=== PATIENT | female | born 1980 | race Caucasian/White ===

== ENCOUNTER 2019-10-17 06:22 | Day surgery (SDC) | payer OTHER, SELFPAY ==
[2019-10-16 15:05] VITALS: BMI 30.5
[2019-10-17] VITALS (11 sets, daily range): BP systolic 89–137; BP diastolic 54–68; PULSE 54–75; RESP 14–18; TEMP 36.4–36.8; O2SAT 94–99
--- NOTE | 2019-10-17 | SCC_ITS ---
Procedure Done: Martin bunionectomy with Octavio osteotomy right foot CPT code 60292. Hammertoe repair with proximal interphalangeal joint arthrodesis of second, third, fourth, fifth toes of the right foot CPT code 54832 ?4. 8 seconds of fluoroscopic guidance, for a cumulative dose of 0.14 mGy, was provided to Dr. Sanabria by the radiology department. C-arm images of the RIGHT foot were saved for the patient's permanent record. DONALDOD
--- NOTE | 2019-10-17 | XR_ITS ---
WS: [id number] INTRAOPERATIVE TECHNIQUE: 1 Spot fluoroscopic images for intraoperative purposes. FLUOROSCOPY TIME: 8 seconds CLINICAL INFORMATION: BUNIONECTOMY COMPARISON: None. FINDINGS: Postoperative bunionectomy with screw fixation across the first proximal phalanx partially visualized . Percutaneous Pin fixation involving the second third fourth and fifth digits. XR/XR foot RT 2V [id number] IMPRESSION: Images obtained for intraoperative purposes.
--- NOTE | 2019-10-17 06:51 | P.PN_ITS ---
Pre-Anesthetic Assessment Pre-Anesthetic Assessment: Height/Weight: Height 1.7 m Weight 88.451 kg Temp Pulse Resp BP Pulse Ox 98.3 F 66 18 137/68 98 10/17/19 06:45 10/17/19 06:45 10/17/19 06:45 10/17/19 06:45 10/17/19 06:45 Proposed Procedure: Operation Date: 10/17/19 07:45 Proposed Procedures p Bunionectomy Lapidus(Right) - Gurpreet Sanabria DPM s Hammertoe Correction(Right) - Gurpreet Sanabria DPM Social: Social History: No alcohol and No tobacco Exam: Pre-Anes Outpt Exam: alert, oriented x 3, clear to auscultation bilaterally and regular rate & rhythm Airway: Submandibular: WNL Cervical ROM: WNL MP: 1 Dentition: Full History/ROS: No significant history except as noted and No significant complaints Musc/skel: Musc/skel: RA Anesthetic Plan: ASA status: I Anesthesia: Anesthesia Evaluation and MAC Risk of > 500 ml blood loss (7ml/kg in children): No PFSH Anesthesia PFSH: Family History (Updated 10/16/19 @ 15:01 by [employer]) Father Hyperlipidemia Social History (Updated 10/16/19 @ 15:02 by [employer]) Smoking and tobacco status: never smoked Alcohol intake: current Alcohol intake frequency: holidays/special occasions only Desire information about alcohol rehabilitation?: No Counseling given: No Data Anesthesia Cardiac Studies: No Data to Display
[2019-10-17 06:57] LABS: OR HCG Qualitative Urine Negative (Negative)
[2019-10-17] MEDS: scopolamine 1.5 Patch 1 PATCH TRANSDERMA (07:30)
[2019-10-17] MEDS: sodium chloride 0.9% 1,000 ML 30 ML IV (07:31)
--- NOTE | 2019-10-17 08:01 | P.PN_ITS ---
Subjective Subjective: Interval history: Patient is a pleasant 38-year-old female who has complaints of bilateral hammertoe and bunion pain right is most severe. She has exhausted conservative measures consisting of supportive shoes, padding, activity modifications and vilb-mxa-rkucjpr NSAIDs along with orthotics. She would like to proceed with surgical correction of her right bunion and hammertoes 2, 3, 4 and 5. Patient denies any subjective nausea, vomiting, fever, chills, shortness of breath or chest pain. She is accompanied by her . Vitals/I&O/Wt Last Vital Signs Temp 98.3 F 10/17/19 06:45 Pulse 66 10/17/19 06:45 Resp 18 10/17/19 06:45 BP 137/68 10/17/19 06:45 Pulse Ox 98 10/17/19 06:45 Weight last 48 hrs Weight 195 lb Physical Exam Narrative: EXAM NARRATIVE: GENERAL: Patient is alert and oriented ?3 and in no acute distress. The following is a focused bilateral lower extremity exam. Patient ambulates without assistance. VASCULAR: Dorsalis pedis and posterior tibial arteries +2 bilaterally. Capillary refill time less than 3 seconds to the distal hallux bilaterally. Calf is supple and nontender proximally and distally. Pedal hair growth present. No edema. NEUROLOGICAL: Epicritic and protopathic sensations grossly intact to the lower extremities. +2 Achilles tendon reflex noted bilaterally. Negative Tinel sign up on percussion of lower extremity nerves. DERMATOLOGICAL: Lower extremity skin is well-hydrated, normal texture and turgor. There are no open sores or lesions noted to the lower extremities. No erythema or ecchymosis present to the bilateral legs and feet. Unable to evaluate toenails due to albanian, acrylic nail at great toe. MUSCULOSKELETAL: Bilateral hallux abductovalgus deformity right more severe than left. Right hallux aggressively abuts the second toe however there is no under riding or overriding at this time. Hallux is not track bound. First metatarsal phalangeal joint range of motion 70 degrees of dorsiflexion bilaterally. This is slightly decreased when loading the first ray. Ankle joint dorsiflexion bilaterally 6 degrees beyond neutral. Reducible hammertoe deformities toes 2 through 5 bilaterally right more severe with sagittal plane dominance. Pes planus foot type noted bilaterally. Tenderness to palpation at bunion deformity right greater than left most tender at the dorsal medial aspect of the first metatarsal head. Range of motion at first metatarsophalangeal joint bilaterally is smooth without crepitus. Muscle strength is 5 out of 5 in all 3 cardinal planes to bilateral foot and ankle. A&P Assessment and plan (1) Bunion, right foot: Patient examined and evaluated, findings and treatment options discussed with patient at length. Patient educated on etiology of hammertoe and bunion deformities and conservative treatment measures consisting of wide accommodative shoes, padding/spacers, calf stretches, activity modifications and vhlz-tzk-vhinjjv NSAIDs as needed as well as orthotics. Patient states that she has employed these measures and as the deformities have progressed over time that she is no longer able to get relief and would like to discuss surgical options. Recommended Lapidus bunionectomy with hammertoe repairs 2 through 5 right foot. Discussed recovery consisting of 6 weeks nonweightbearing and risks including pain, bleeding, numbness, infection, overcorrection, under correction, loss of function, malunion, nonunion and recurrence of deformity as well as need for further surgical intervention, risks also DVT, bruising and swelling, risks associated with anesthesia. This can be performed outpatient under MAC anesthesia. She would like to have this scheduled in the near future will contact her clinic when she is ready to move forward, will follow-up with primary care for updated H&P 30 days before surgery. She is in agreement with this plan of care and verbalizes understanding at this time. She will call with any questions or concerns that may arise. Status: Acute Code(s): M21.611 - Bunion of right foot (2) Acquired hammer toe deformity of lesser toe of right foot: Status: Acute Code(s): M20.41 - Other hammer toe(s) (acquired), right foot (3) Right foot pain: Status: Acute Code(s): M79.671 - Pain in right foot Attestations Medical Necessity Statement*: Painful hammertoe Coding Level of Care Code Acute Turbinated Bone Grinder for Martha Nolan Diagnoses Bunion, right foot M21.611 Acquired hammer toe deformity of lesser toe of right foot M20.41 Right foot pain M79.671
[2019-10-17] MEDS: midazolam 1 mg/mL INJ 2 mL 2 MG IVP (08:05)
--- NOTE | 2019-10-17 09:53 | SUR.OPER ---
0834 NOTIFIED OF PT STATUS VIA CELL PHONE 09 NOTIFIED OF PT STATUS VIA CELL PHONE
[2019-10-17] MEDS: ondansetron 2 mg/ML SDV 2 mL 4 MG IVP (10:27)
[2019-10-17] MEDS: metoclopramide 5 mg/mL SDV 2 mL 10 MG IVP (10:32)
[2019-10-17] MEDS: ketorolac 30 mg/mL INJ IVP (10:40)
--- NOTE | 2019-10-17 10:44 | XR_ITS ---
WS: [id number] Right foot, 3 views, 10/17/2019 Clinical Data: post op Comparison: Weightbearing views of both feet, 08/20/2019 Findings: Patient has had an osteotomy of the base of the right first proximal phalanx. A bunionectomy at the head of the right first metatarsal with addition of an oblique orthope dic screw has been performed. There are fusions of the second through fifth toes to correct hammertoe s deformities XR/XR foot RT min 3V* [id number] Impression: Bunionectomy of the head of the right first metatarsal and hammertoe correction s of the second through fifth toes
--- NOTE | 2019-10-17 10:46 | SUR.PHASEI ---
1025- RECEIVED PATIENT IN PACU FROM OR VIA [facility]. RESP ARE EVEN AND NONLABORED. SAT 99% WITH ROOM AIR. RLE IS WARM TO TOUCH WITH CAP REFILL <3 SECONDS. DRESSING DRY AND INTACT. NO S/S PAIN, REPORTS NAUSEA. MEDICATED PER PROTOCOL. WILL CONTINUE TO MONITOR.
--- NOTE | 2019-10-17 11:28 | SUR.PHASEI ---
1101- TRANSFERRED PATIENT FROM PACU TO OPS VIA [facility]. RESP ARE EVEN AND NONLABORED. SAT 98% WITH ROOM AIR. RLE IS WARM TO TOUCH WITH CAP REFILL <3 SECONDS. DRESSING DRY AND INTACT. NAUSEA IMPROVED. REPORTS SOME FOOT PAIN. TRANSITION OF CARE TO [facility]
[2019-10-17] MEDS: oxyCODONE-APAP 10-325 mg Tablet 1 TAB PO (11:41)
--- NOTE | 2019-10-17 15:49 | ANE.PACU ---
 Inpatient post-anesthesia follow up: Airway intact: Yes Vital signs: Temperature 97.8 F Pulse Rate [Left A pical] 61 Respiratory Rate 18 Blood Pressure [Ri ght Arm] 105/66 Pulse Oximetry 97 Oxygen Delivery Me thod Room Air Oxygen Flow Rate Fraction of Inspir ed Oxygen Hydration adequate: Yes Nausea and vomiting: No Mental status: Baseline
--- NOTE | 2019-10-17 20:04 | PM.OP ---
Operative Report Post-Operative Note Date of procedure: 10/18/19 Preop Diagnosis: Bunion of right foot, hammertoe deformity second, third, fourth and fifth toes right foot. Post-op diagnosis: same Post-op Findings: None Procedure Done: Martin bunionectomy with Octavio osteotomy right foot CPT code 36159. Hammertoe repair with proximal interphalangeal joint arthrodesis of second, third, fourth, fifth toes of the right foot CPT code 53160 ?4. Implants: [place] [employer] 3.5 mm x 20 mm headless cannulated screw at Martin bunionectomy right foot [place] [employer] nitinol staple 8 mm x 8 mm x 8 mm angled at Octavio osteotomy right foot [place] 1.25 mm K wires at hammertoe repair second, third and fourth right foot 0.045 K wire at fifth hammertoe repair right foot Specimens removed/disposition: None Pathology: none sent Surgeon: Gurpreet Sanabria Anesthesia: general Estimated blood loss (mL): 5 IV fluids (mL): 0 Urine output (mL): 0 Complications: None Findings: None Condition: stable Disposition: PACU Operative Report Brief History: Patient educated on etiology of hammertoe and bunion deformities and conservative treatment measures consisting of wide accommodative shoes, padding/spacers, calf stretches, activity modifications and fsam-kph-cedzjya NSAIDs as needed as well as orthotics. Patient states that she has employed these measures and as the deformities have progressed over time that she is no longer able to get relief and would like to discuss surgical options. Recommended bunionectomy with hammertoe repairs 2 through 5 right foot. Discussed recovery consisting of 6 weeks nonweightbearing and risks including pain, bleeding, numbness, infection, overcorrection, under correction, loss of function, malunion, nonunion and recurrence of deformity as well as need for further surgical intervention, risks also DVT, bruising and swelling, risks associated with anesthesia. Procedure: Under mild sedation the patient was brought to the operating room and placed on the operating table in supine position. Anesthesia was then administered by the anesthesia service. A timeout was performed. Well-padded pneumatic tourniquet was applied to the right ankle. Right ankle block was performed with 30 cc of 0.5% Marcaine plain. Right lower extremity was then scrubbed, prepped and draped utilizing normal aseptic technique. Right foot was examined a weighted with a Esmarch bandage and tourniquet was inflated to 250 mmHg. Attention was directed to the right foot where a linear longitudinal incision was made 5 cm in length medial and parallel to the extensor hallucis longus tendon. Incision was made with a #15 blade and deepened through subcutaneous tissue utilizing a combination of sharp and blunt technique. Care was taken to retract and preserve neurovascular and tendinous structures. All bleeders were ligated and cauterized as necessary. Linear capsulotomy was performed in the head of the first metatarsal and base of the proximal phalanx were freed from the soft tissue and capsular attachments the eminence of bony hypertrophy was resected at the dorsal medial aspect of the right first metatarsal head and passed from the operative field. A K wire was inserted from medial to lateral to act as an axis guide followed by a chevron type osteotomy with apex pointed distally through and through. The head of the first metatarsal was translocated laterally and impacted back onto the first metatarsal securely with excellent bony apposition and compression noted in an anatomically corrected position this was temporarily fixated followed by fixation utilizing standard AO technique this was a 3.5 mm x 20 mm headless compression screw with excellent bony apposition and compression noted. Temporary fixation was removed and the remaining medial shelf was transected with all rough edges smoothed. Incision site was flushed with saline solution. Attention was then directed to the medial aspect of the right proximal phalanx where dissection was carried distally and the periosteal reflection of the medial and dorsal aspect of the proximal phalanx was performed a K wire was inserted from dorsal to plantar at the lateral cortex near the metaphyseal diaphyseal juncture to act as an axis guide. Followed by an Octavio osteotomy maintaining a lateral cortical hinge. Bony wafer was passed from the operative field. The osteotomy was compressed and fixated utilizing a nitinol staple 8 mm x 8 mm x 8 mm with excellent bony apposition and compression noted. Incision site was flushed with copious amounts of sterile saline solution. Periosteal capsular structures closed with 3-0 Vicryl. Subcutaneous tissue closed with 4-0 Vicryl. Skin was then closed with 5-0 Monocryl in a running intracuticular fashion. Attention was directed to the right second, third, and fourth toes where a linear longitudinal incisions were made with a #15 blade over the dorsal aspect of the proximal interphalangeal joint. Transverse tenotomy's were performed of the extensor tendons at the level of the proximal phalangeal joints which were then reflected proximally and temporarily retracted utilizing mosquito hemostats. The head of the proximal phalanx and base of intermediate phalanx of toes 2, 3, 4 were denuded of articular surface followed by saline flush. Next toes 2, 3 and 4 were fixated utilizing a 1.25 K wire which was initially integrated at the base of the middle phalanx to the distal aspect of the toe exiting out the distal aspect of the distal phalanx and then integrated back into the proximal phalanx and fixated across the metatarsal phalangeal joint and anatomical position for improved stabilization. Excess wire was bent at a 90 degree elbow trimmed and covered with a Gracy ball. The extensor tendons of toes 2, 3, 4 were reapproximated utilizing 4-0 Vicryl and skin was closed with 4-0 nylon. Attention was then directed to the right fifth toe where 2 curvilinear semi-elliptical incisions were performed taking a larger skin wedge medially coursing in a distal medial to proximal lateral orientation. Skin bridge was excised and passed from the operative field. Transverse tenotomy was performed in the head of the proximal phalanx was transected with a sagittal saw and passed from the operative field. Base of the middle phalanx was denuded of its articular surface with a bone rongeur. Incision site was flushed with saline solution followed by fixation of the right fifth toe utilizing 8.045 K wire which was integrated out from the base of the middle phalanx distally and then retrograded into the proximal phalanx not crossing the metatarsal phalangeal joint excess wire was bent at a 90 degrees trimmed and covered with a Gracy ball. Incision site was again flushed with saline extensor tendon was reapproximated utilizing 4-0 Vicryl. Skin closed with 4-0 nylon. Medial incision was dressed with benzoin and Steri-Strips followed by Adaptic being applied to all incision sites followed by sterile 4 x 4's, Kerlix and application of well-padded multilayer compressive posterior splint with ankle joint at neutral position. Tourniquet was deflated and a prompt hyperemic response was noted to all 5 digits of the right foot. Patient tolerated the procedure well and was transferred to the PACU with vital signs stable and vascular status intact. She was provided a prescription for Percocet 7.5/325 mg to be taken as needed ever 4 hours for pain. She was also provided a prescription for Zofran. Patient provided my cell phone number and is to contact me with any postoperative questions or concerns.
== END 2019-10-17 12:00 | disposition home or self-care (01) ==
PROVIDERS: Family Provider Family Medicine; PCP Family Medicine; Visit Provider Podiatrist Foot & Ankle Surgery
PROC: (CPT 28297; principal; 2019-10-17 07:40)
PROC: (CPT 28285; 2019-10-17 07:40)
DX: M21.611 Bunion of right foot (principal); M20.41 Other hammer toe(s) (acquired), right foot; M19.90 Unspecified osteoarthritis, unspecified site
CPT/HCPCS: 28285 ×4; 28299; 73620; 73630; 76000; 84703; 96365; 96374; C1713; J0131; J0690; J1885; J2250; J2405; J2765; J3010; J3490; J7030

== ENCOUNTER → 2019-10-29 14:45 | Outpatient (BNVA) | payer OTHER, SELFPAY | PROVIDERS: Family Provider Family Medicine; PCP Family Medicine; Visit Provider Podiatrist Foot & Ankle Surgery | DX: Z98.890 Other specified postprocedural states (principal) | CPT/HCPCS: 73630 ==

== ENCOUNTER 2019-10-29 16:36 | Outpatient (CLI) | payer OTHER, SELFPAY | END 2019-10-29 16:37 | disposition home or self-care (01) | LOC: SPT 16:37 | PROVIDERS: Family Provider Family Medicine; PCP Family Medicine; Visit Provider Podiatrist Foot & Ankle Surgery | DX: Z46.89 Encounter for fitting and adjustment of other specified devices (principal) | CPT/HCPCS: L4361 ==

== ENCOUNTER → 2019-11-19 12:56 | Outpatient (BNVA) | payer OTHER, SELFPAY | PROVIDERS: Family Provider Family Medicine; PCP Family Medicine; Visit Provider Podiatrist Foot & Ankle Surgery | DX: M79.671 Pain in right foot (principal); M20.41 Other hammer toe(s) (acquired), right foot; M21.611 Bunion of right foot; Z98.890 Other specified postprocedural states | CPT/HCPCS: 73630 ==

== ENCOUNTER 2019-11-19 14:43 | Outpatient (CLI) | payer OTHER, SELFPAY | END 2019-11-19 14:44 | disposition home or self-care (01) | LOC: SPT 14:44 | PROVIDERS: Family Provider Family Medicine; PCP Family Medicine; Visit Provider Podiatrist Foot & Ankle Surgery | DX: M20.41 Other hammer toe(s) (acquired), right foot (principal) | CPT/HCPCS: L3100 ==

== ENCOUNTER → 2019-11-27 15:10 | Outpatient (BNVA) | payer OTHER, SELFPAY | PROVIDERS: Family Provider Family Medicine; PCP Family Medicine; Visit Provider Podiatrist Foot & Ankle Surgery | DX: Z98.890 Other specified postprocedural states (principal); M79.671 Pain in right foot; M20.41 Other hammer toe(s) (acquired), right foot | CPT/HCPCS: 73630 ==

== ENCOUNTER 2020-09-22 15:02 | Outpatient (CLI) | payer OTHER, SELFPAY ==
--- NOTE | 2020-09-22 15:07 | MR_ITS ---
WS: [id number] MRI RIGHT SHOULDER HISTORY: NONTRAUMATIC RIGHT SHOULDER PAIN COMPARISON: None available. TECHNIQUE: Multiplanar sequences of the shoulder joint are submitted. Very minimal arthritis at the AC joint. No encroachment upon the supraspinatus. No os acromion. Bicep s tendon is in normal position. No rotator cuff tears are identified. No muscle atrophy or edema. No joint effusion. No labral tear i s identified. MR/MR shoulder RT wo con* [id number] IMPRESSION: 1. Minimal AC joint arthritis. 2. No rotator cuff tear. 3. No joint effusion.
== END 2020-09-22 15:03 | disposition home or self-care (01) ==
LOC: RADSHAW 15:06
PROVIDERS: Family Provider Family Medicine; PCP Family Medicine; Visit Provider Family Medicine
DX: M13.811 Other specified arthritis, right shoulder (principal)
CPT/HCPCS: 73221

== ENCOUNTER 2020-10-07 08:56 | Outpatient (CLI) | payer OTHER, SELFPAY ==
--- NOTE | 2020-10-07 09:00 | MM_ITS ---
WS: [id number] Exam: [place] [id number] Date/Time of Exam: 10/07/2020 9:02 AM Reason For Exam: SCREENING VIEWS: MLO and CC views both breasts. Comparison made with prior exam of 11/10/2016 and 09/02/2019. Findings: There was no sign of mass, architectural distortion or suspicious calcification in either breast. He terogeneously dense MM/[place] [id number] Impression: BI-RADS: 2-Benign FOLLOW-UP: 1 Year Follow-up This mammogram was also analyzed by the Computer Aided Detection System R2 Imag e Paper Feeder.
== END 2020-10-07 08:57 | disposition home or self-care (01) ==
LOC: RADSHAW 08:58
PROVIDERS: PCP Family Medicine; Visit Provider Family Medicine
DX: Z12.31 Encounter for screening mammogram for malignant neoplasm of breast (principal)
CPT/HCPCS: 77067

== ENCOUNTER → 2021-04-16 14:29 | Outpatient (BNVA) | payer OTHER, SELFPAY | PROVIDERS: PCP Family Medicine; Visit Provider Nurse Practitioner Family | DX: Z20.822 Contact with and (suspected) exposure to COVID-19 (principal) | CPT/HCPCS: 87635 ==

== ENCOUNTER → 2021-08-24 13:49 | Outpatient (BNVA) | payer OTHER, SELFPAY | PROVIDERS: PCP Family Medicine; Visit Provider Nurse Practitioner Family | DX: Z20.822 Contact with and (suspected) exposure to COVID-19 (principal); R68.89 Other general symptoms and signs | CPT/HCPCS: 87400; 87635 ==

== ENCOUNTER → 2021-12-25 15:18 | Outpatient (BNVA) | payer OTHER, SELFPAY | PROVIDERS: PCP Family Medicine; Visit Provider Registered Nurse Neonatal Intensive Care | DX: N12 Tubulo-interstitial nephritis, not specified as acute or chronic (principal) | CPT/HCPCS: 81000 ==

== ENCOUNTER → 2022-01-04 18:24 | Outpatient (BNVA) | payer OTHER, SELFPAY | PROVIDERS: PCP Family Medicine; Visit Provider Nurse Practitioner | DX: N39.0 Urinary tract infection, site not specified (principal) | CPT/HCPCS: 81000 ==

== ENCOUNTER → 2022-01-10 13:32 | Outpatient (BNVA) | payer OTHER, SELFPAY | PROVIDERS: PCP Family Medicine; Visit Provider Registered Nurse Neonatal Intensive Care | DX: N39.0 Urinary tract infection, site not specified (principal); R30.0 Dysuria; R39.9 Unspecified symptoms and signs involving the genitourinary system | CPT/HCPCS: 81000; 87077; 87086; 87184 ==

== ENCOUNTER → 2022-01-26 09:37 | Outpatient (BNVA) | payer OTHER, SELFPAY | PROVIDERS: PCP Family Medicine; Visit Provider Family Medicine | DX: R39.9 Unspecified symptoms and signs involving the genitourinary system (principal); A49.9 Bacterial infection, unspecified; Z16.12 Extended spectrum beta lactamase (ESBL) resistance; N39.0 Urinary tract infection, site not specified | CPT/HCPCS: 81000 ==

== ENCOUNTER 2022-02-23 09:55 | Outpatient (CLI) | payer OTHER, SELFPAY ==
--- NOTE | 2022-02-23 10:13 | MM_ITS ---
WS: [id number] BILATERAL SCREENING DIGITAL BREAST TOMOSYNTHESIS MAMMOGRAM WITH CAD HISTORY: SCREENING COMPARISON: 10/07/2020 and 11/10/2016 Bilateral CC and MLO views with tomosynthesis and synthetic mammography submitted. Computer aided det ection analyzed. Breast composition: The breasts are heterogeneously dense, which may obscure small masses. No suspici ous masses, microcalcifications or architectural distortion. Benign lymph node upper-outer quadrant L EFT breast. MM/[place] [id number] IMPRESSION: BI-RADS: 2-Benign FOLLOW UP: 1 Year Follow-up
== END 2022-02-23 09:56 | disposition home or self-care (01) ==
PROVIDERS: PCP Family Medicine; Visit Provider Family Medicine
DX: Z12.31 Encounter for screening mammogram for malignant neoplasm of breast (principal); N39.0 Urinary tract infection, site not specified
CPT/HCPCS: 77063; 77067; 81003; 87077; 87086; 87186

== ENCOUNTER → 2022-04-07 09:59 | Outpatient (BNVA) | payer OTHER, SELFPAY | PROVIDERS: PCP Family Medicine; Visit Provider Urology | DX: N30.20 Other chronic cystitis without hematuria (principal) | CPT/HCPCS: 81003 ==

== ENCOUNTER → 2022-05-17 08:51 | Outpatient (BNVA) | payer OTHER, SELFPAY | PROVIDERS: PCP Family Medicine; Visit Provider Nurse Practitioner Family | DX: N30.20 Other chronic cystitis without hematuria (principal) | CPT/HCPCS: 74018; 81003; 87086 ==

== ENCOUNTER 2022-05-20 18:21 | Observation (INO) | payer OTHER, SELFPAY ==
--- NOTE | 2022-05-20 18:29 | ECG_ITS ---
[facility] Test Date: 2022-05-20 Pat Name: Karli Juarez Department: Room: Gender: Female Hospice Spiritual Care Coordinator: : 1980 Requested By: Anand Whitaker Order Number: [id number] Andres MD: Dilan Montero M.D. Measurements Intervals [place] Rate: 106 P: 45 OR: 171 QRS: 26 QRSD: 85 T: 26 QT: 309 QTc: 412 Interpretive Statements SINUS TACHYCARDIA No previous ECG available for comparison Electronically Signed On 05-20-2022 20:29:52 CDT by Dilan Montero M.D. [email or web address]
[2022-05-20 18:30] VITALS: BP 122/70; PULSE 105; RESP 16; TEMP 36.4; O2SAT 100
--- NOTE | 2022-05-20 18:31 | W.ED.CHESTPA ---
HPI - Chest Pain General: Chief Complaint: Chest Pain Stated Complaint: Chest Pain Time Seen by Provider: 05/20/22 18:31 History of Present Illness: Ms. Juarez is a 41-year-old lady with history of recurrent urinary tract infection currently on treatment who presents to the emergency department due to chest discomfort. Onset of symptoms was approximately 2 hours ago at rest. She endorses sharp pleuritic right-sided chest pain. Intensity symptoms is moderate to severe and worse with inspiration and movement. Denies similar episodes in the past. No recent surgeries or continuous churn buttermaker immobilization. No other specific changes in health, exacerbating, or alleviating factors identified. Onset (ago): hour(s) Timing of current episode: constant Prior episodes: No Onset: during rest Pain location: right chest Severity: moderate Quality: sharp Relieving factors: nothing Exacerbating factors: inspiration and movement Review of Systems General: Reports: 10 or more systems reviewed and unremarkable except in HPI and below PFSH ED PFSH: Medical History Frequent UTI Surgical History History of bunionectomy of right great toe History of hammertoe correction Family History Father Hyperlipidemia Social History Smoking and tobacco status: never smoked Alcohol intake: current Alcohol intake frequency: holidays/special occasions only Desire information about alcohol rehabilitation?: No Counseling given: No Marital status: service: No Current occupational status: employed History of recent travel: No Physical Exam Const: COMMON NORMALS: alert GENERAL APPEARANCE: cooperative, well developed, in distress (Mild, uncomfortable appearance) and ill appearing (Somewhat) HENMT: COMMON NORMALS: normocephalic and atraumatic HEAD & SCALP: normocephalic and atraumatic Eye: COMMON NORMALS: conjunctivae normal CONJUNCTIVA: Yes conjunctivae normal SCLERA: sclerae normal Neck/C-Spine: COMMON NORMALS: supple GENERAL: Yes trachea midline Resp: COMMON NORMALS: normal respiratory effort EFFORT & INSPECTION: Yes able to speak in complete sentences Cardio: COMMON NORMALS: regular rhythm RATE: tachycardic RHYTHM: regular rhythm GI: COMMON NORMALS: Soft to palpation PALPATION: Yes Soft to palpation and No Tenderness to palpation present (GI) Extremity: GENERAL: Yes normal exam except as noted and No edema Neuro: COMMON NORMALS: moves all extremities SENSORIUM/ORIENTATION: Yes alert and No Orientation impaired Psych: COMMON NORMALS: mental status grossly normal and Normal thought process present THOUGHT PROCESS: Normal thought process present Course ED course: - Patient was seen and evaluated by me at bedside - Patient placed on cardiac monitors, IV access obtained - Initial evaluation notable for exam as above. Uncomfortable and somewhat ill-appearing - Labs and xrays personally interpreted by me. EKG showing sinus tachycardia with nonspecific ST segment abnormalities. No STEMI. - Fluids, analgesia, and antiemetic given - Labs notable for no leukocytosis, normal hemoglobin. D-dimer elevated. Metabolic panel with mild evidence of dehydration. Transaminitis of uncertain etiology. Delta troponin negative. No evidence of UTI. Negative viral studies. - Imaging notable for no lobar consolidation or pneumothorax. Given persistent tachycardia without clear explanation patient cannot be ruled out by PERC criteria therefore D-dimer obtained as noted above end was elevated. CTA without a pulmonary embolism though does show evidence of pneumonia. Somewhat odd given patient's clinical picture as she has not had cough associated with symptoms. -Antibiotic for community-acquired pneumonia ordered - Upon serial reexamination after treatment the patient was significantly improved despite multiple doses of analgesia - Based on patient history, evaluation, and testing as interpreted the most likely cause of the patient's condition is pneumonia with persistent tachycardia and intractable chest discomfort. Additional consideration is pericarditis though EKG does not show significant ST elevation. - The results of ED evaluation were discussed with the patient including plan for admission due to requirement for level of care not available if discharged to prevent significant worsening/deterioration. - Admitting service was contacted and Dr Geller with the hospitalist service agreed to admit the patient - Patient was admitted without further deterioration or significant events. Note: Click bubbles or prepopulated barillas in note writing are used for assistance with data collection and billing and are inherently more limited than narrative and other text portions of this note. Please use narrative for additional clinical history and defer to narrative/free test for any case of contradictory information. If information appears in only free text or click bubble it should be considered present or absent as reported. Please contact note promotion writer for clarifications of clinical information or contradictory information. MDM is a brief summary, contradictory or erroneous seeming information should be clarified and full note should be reviewed. Vital Signs: Vital signs: Vital Signs Temperature 98.2 F 05/22/22 13:28 Pulse Rate 74 05/22/22 13:28 Respiratory Rate 16 05/22/22 13:28 Blood Pressure 121/83 05/22/22 13:28 Pulse Oximetry 98 05/22/22 13:28 Oxygen Delivery Me thod 05/22/22 12:00 MDM - Chest Pain Medical Decision Making 41-year-old lady presenting with tachycardia and chest pain. Possible pneumonia identified on CT scan. Patient did not have significant improvement despite multiple rounds of ED treatment. Admitted for further management. Medical Records I reviewed the patient's medical records. Lab Data I reviewed the patient's lab results. : 05/22/22 04:42 05/22/22 04:42 Radiology Impressions Chest X-Ray 05/20/22 18:49 IMPRESSION: No acute findings. Chest CTA 05/20/22 19:22 IMPRESSION: 1. There is no pulmonary embolus. 2. Mild bibasilar ground-glass/airspace opacity is present, consistent with atelectasis, edema, or pneumonia. 3. There is mild dependent atelectasis in the upper lobes and mild tree-in-bud appearance compatible with mild pneumonitis or trace edema. 4. Heterogeneous enlarged thyroid gland without discrete nodule. No follow-up is necessary. Gallbladder Ultrasound 05/21/22 23:05 IMPRESSION: Unremarkable gallbladder ultrasound. Laboratory Results WBC 9.4 10^3/uL (4.0-10.0) 05/20/22 18:55 RBC 4.58 10^6/uL (4.1-5.3) 05/20/22 18:55 Hgb 12.2 g/dL (11.5-15.3) 05/20/22 18:55 Hct 38.2 % (37.0-47.0) 05/20/22 18:55 MCV 83.4 fl (81-99) 05/20/22 18:55 MCH 26.6 pg (28.0-34.0) L 05/20/22 18:55 MCHC 31.9 g/dL (30.0-36.0) 05/20/22 18:55 RDW 12.6 % (12.1-15.1) 05/20/22 18:55 Plt Count 288 10^3/cmm (130-400) 05/20/22 18:55 MPV 11.2 fL (7.4-10.4) H 05/20/22 18:55 Neut % (Auto) 71.1 % 05/20/22 18:55 Lymph % (Auto) 19.1 % 05/20/22 18:55 Wise % (Auto) 8.1 % 05/20/22 18:55 Eos % (Auto) 1.2 % 05/20/22 18:55 Baso % (Auto) 0.3 % 05/20/22 18:55 Neut # (Auto) 6.68 10^3/uL (1.8-7.7) 05/20/22 18: Lymph # (Auto) 1.8 10^3/uL (0.8-4.8) 05/20/22 18:55 Wise # (Auto) 0.8 10^3/uL (0.2-0.9) 05/20/22 18:55 Eos # (Auto) 0.1 10^3/uL (0.0-0.8) 05/20/22 18:55 Baso # (Auto) 0.0 10^3/uL (0.0-0.1) 05/20/22 18: Nucleated RBC % (auto) 0 % 05/20/22 18: Nucleated RBCs # 0.0 /100WBC 05/20/22 18:55 ESR 17 mm/hr (0-15) H 05/20/22 18:55 D-Dimer 0.75 ug/mIFEU (0-0.59) H 05/20/22 18:55 Sodium 137 mmol/L (136-145) 05/20/22 18:55 Potassium 3.7 mmol/L (3.5-5.1) 05/20/22 18:55 Chloride 105 mmol/L (98-107) 05/20/22 18:55 Carbon Dioxide 20 mmol/L (22-29) L 05/20/22 18:55 Anion Gap 15.7 (5-19) 05/20/22 18:55 BUN 17 mg/dL (6-20) 05/20/22 18:55 Creatinine 0.4 mg/dL (0.5-0.9) L 05/20/22 18:55 GFR Calculation 174.2 mL/min (90-130) H 05/20/22 18:55 Glucose 83 mg/dL (65-115) 05/20/22 18:55 Calculated Osmolality 285 mOsm/kg (285-295) 05/20/22 18:55 Calcium 10.1 mg/dL (8.5-10.5) 05/20/22 18:55 Total Bilirubin 0.3 mg/dL (0.15-1.2) 05/20/22 18:55 AST 43 U/L (0-32) H 05/20/22 18:55 ALT 44 U/L (0-33) H 05/20/22 18:55 Alkaline Phosphatase 151 IU/L (35-105) H 05/20/22 18:55 Troponin T Baseline 6 ng/L (0-10) 05/20/22 18:55 Troponin T 120 Minute 6.00 ng/L (0-10) 05/20/22 21:15 Delta Troponin T 0 ABS# (0-10) 05/20/22 21:15 C-Reactive Protein 13.0 mg/L (0.0-4.9) H 05/20/22 21:15 NT-Pro-B Natriuret Pep 80 pg/mL (0-125) 05/20/22 18:55 Total Protein 7.0 g/dL (6.6-8.7) 05/20/22 18:55 Albumin 4.1 g/dL (3.5-5.2) 05/20/22 18:55 Globulin 2.9 g/dL (1.3-4.6) 05/20/22 18:55 Lipase 26 U/L (13-60) 05/20/22 18:55 TSH 0.01 uIU/mL (0.27-4.20) L 05/20/22 21:15 Free T4 2.19 ng/dL (0.82-1.77) H 05/20/22 21:15 Free T3 6.6 PG/ML (2.0-4.4) H 05/20/22 21:15 HCG, Qual Negative (Negative) 05/20/22 20:08 Urine Color Yellow (Yellow) 05/20/22 20:08 Urine Appearance Clear (CLEAR) 05/20/22 20:08 Urine pH 5 (5-7) 05/20/22 20:08 Ur Specific [place] 1.025 (1.005-1.030) 05/20/22 20:08 Urine Protein Neg (Negative) 05/20/22 20:08 Urine Glucose (UA) Norm (Normal) 05/20/22 20:08 Urine Ketones 1+ (Negative) H 05/20/22 20:08 Urine Blood Neg (Negative) 05/20/22 20:08 Urine Nitrate Negative (Negative) 05/20/22 20:08 Urine Bilirubin Neg (Negative) 05/20/22 20:08 Urine Urobilinogen Neg mg/dL (Negative) 05/20/22 20:08 Ur Leukocyte Esterase Negative (Negative) 05/20/22 20:08 Ethyl Alcohol < 10 mg/dL (0-10) 05/20/22 21:15 Rheumatoid Factor 11.0 IU/mL (0-14) 05/20/22 18:55 Hepatitis A IgM Ab Non-reactive (Nonreactive) 05/20/22 18:55 Hep Bs Antigen Non-reactive (Nonreactive) 05/20/22 18:55 Hep B Core IgM Ab Non-reactive (Nonreactive) 05/20/22 18:55 Hepatitis C Antibody Non-reactive (Nonreactive) 05/20/22 18:55 HIV 1&2 Ab & HIV 1 Ag Non-reactive (Non-Reactiv) 05/20/22 18:55 HIV 1&2 Antibody Non-reactive (Non-Reactiv) 05/20/22 18:55 SARS-CoV-2 Ag (Rapid) Negative (Negative) 05/20/22 20:08 Discharge Plan Discharge Patient Disposition: Placed in Observation Admit Provider: Sebastian Geller Clinical Impression: Chest pain, Pneumonia Discharge Diet: Cardiac Discharge Activity: Increase activity as tolerated Coding Level of Care Code ED Contracts Analyst for Chg Fwd Exam Comprehensive
--- NOTE | 2022-05-20 18:44 | PC.NURSE ---
PT PLACED ON CONTINUOUS SPO2, NIBP, AND CM.
--- NOTE | 2022-05-20 18:49 | XRR_ITS ---
PROCEDURE INFORMATION: Exam: XR Chest Exam date and time: 05/20/2022 6:58 PM Age: 41 years old Clinical indication: On breathing; Patient HX: Chest pain, upper new onset, no known trauma TECHNIQUE: Imaging protocol: Radiologic exam of the chest. Views: 1 view. COMPARISON: CR XR KUB [id number] 05/17/2022 10:15 AM FINDINGS: Lungs: Unremarkable. No consolidation. Pleural spaces: Unremarkable. No pleural effusion. No pneumothorax. Heart/Mediastinum: Unremarkable. No cardiomegaly. Bones/joints: No acute abnormality. XR/XR chest 1V portable [id number] IMPRESSION: No acute findings.
[2022-05-20 18:58] VITALS: RESP 16
[2022-05-20] MEDS: ondansetron 2 mg/ML SDV 2 mL 4 MG IVP ×2 (18:58→23:43)
[2022-05-20] MEDS: morphine 4 mg/mL SDV 1 mL IVP (18:58)
[2022-05-20 19:03] LABS: Basophils % 0.3 %; Eosinophils # 0.1 10^3/uL (0.0-0.8); Eosinophils % 1.2 %; Hematocrit 38.2 % (37.0-47.0); Hemoglobin 12.2 g/dL (11.5-15.3); Lymphocytes # 1.8 10^3/uL (0.8-4.8); Lymphocytes % 19.1 %; Mean Corpuscular HGB Conc 31.9 g/dL (30.0-36.0); Mean Corpuscular Hemoglobin 26.6 pg (28.0-34.0); Mean Corpuscular Volume 83.4 fl (81-99); Mean Platelet Volume 11.2 fL (7.4-10.4); Monocytes # 0.8 10^3/uL (0.2-0.9); Monocytes % 8.1 %; Neutrophils # 6.68 10^3/uL (1.8-7.7); Neutrophils % 71.1 %; Nucleated Red Blood Cells % 0 %; Platelet Count 288 10^3/cmm (130-400); Red Blood Count 4.58 10^6/uL (4.1-5.3); Red Cell Distribution Width 12.6 % (12.1-15.1); White Blood Count 9.4 10^3/uL (4.0-10.0)
--- NOTE | 2022-05-20 19:05 | PC.NURSE ---
REPORT GIVEN TO [facility].
[2022-05-20 19:21] LABS: D Dimer 0.75 ug/mIFEU (0-0.59)
--- NOTE | 2022-05-20 19:22 | CTR_ITS ---
PROCEDURE INFORMATION: Exam: CTA Chest With Contrast Exam date and time: 05/20/2022 7:34 PM Age: 41 years old Clinical indication: Chest wall pain; Patient HX: New onset upper chest pain wo trauma; Pain when breathing in; Additional info: Elevated ddimer, tachycardia, pleuritic chest pain TECHNIQUE: Imaging protocol: Computed tomographic angiography of the chest with contrast. 3D rendering (Not supervised by radiologist): MIP and/or 3D reconstructed images were created by the technologist. Radiation optimization: All CT scans at this facility use at least one of these dose optimization techniques: automated exposure control; mA and/or kV adjustment per patient size (includes targeted exams where dose is matched to clinical indication); or iterative reconstruction. Contrast material: OMNIPAQUE 350; Contrast volume: 85 ml; Contrast route: INTRAVENOUS (IV); COMPARISON: CR XR chest 1V portable [id number] 05/20/2022 6:58 PM RADIATION DOSE METRICS: Total DLP (mGy-cm): 363.34 FINDINGS: Pulmonary arteries: There is no pulmonary embolus. Aorta: Unremarkable. No aortic aneurysm. No aortic dissection. Thyroid: The thyroid gland is enlarged and in particular the left thyroid lobe is enlarged and very heterogeneous measuring at least 4.5 x 3.4 x 4.9 cm. No discrete thyroid nodule is identified. Lungs: Mild bibasilar ground-glass/airspace opacity is present, consistent with atelectasis, edema, or pneumonia. There is mild dependent atelectasis in the upper lobes and mild tree-in-bud appearance compatible with mild pneumonitis or trace edema. No dense lobar consolidation. Pleural spaces: Unremarkable. No pneumothorax. No pleural effusion. Heart: The heart is enlarged. Lymph nodes: Unremarkable. No enlarged lymph nodes. Diaphragm: A small hiatal hernia is present. Liver: There is a diffuse decrease in hepatic parenchymal density, consistent with fatty infiltration. Gallbladder and bile ducts: Multiple calcified gallstones are present. There is no wall thickening or pericholecystic fluid to suggest cholecystitis. Bones/joints: Unremarkable. No acute fracture. Soft tissues: Unremarkable. CT/CT angio chest PE protcl [id number] IMPRESSION: 1. There is no pulmonary embolus. 2. Mild bibasilar ground-glass/airspace opacity is present, consistent with atelectasis, edema, or pneumonia. 3. There is mild dependent atelectasis in the upper lobes and mild tree-in-bud appearance compatible with mild pneumonitis or trace edema. 4. Heterogeneous enlarged thyroid gland without discrete nodule. No follow-up is necessary.
[2022-05-20 19:30] LABS: Troponin(5th) Baseline 6 ng/L (0-10)
[2022-05-20 19:36] LABS: Alanine Aminotransferase 44 U/L (0-33); Albumin Level 4.1 g/dL (3.5-5.2); Alkaline Phosphatase 151 IU/L (35-105); Anion Gap 15.7 (5-19); Aspartate Amino Transferase 43 U/L (0-32); Blood Urea Nitrogen 17 mg/dL (6-20); Calcium 10.1 mg/dL (8.5-10.5); Carbon Dioxide 20 mmol/L (22-29); Chloride 105 mmol/L (98-107); Globulin 2.9 g/dL (1.3-4.6); Glomerular Filtration Rate 174.2 mL/min (90-130); Glucose 83 mg/dL (65-115); Lipase 26 U/L (13-60); NT Pro B Type Natriuretic Pept 80 pg/mL (0-125); Osmolality Calculated 285 mOsm/kg (285-295); Potassium 3.7 mmol/L (3.5-5.1); Sodium 137 mmol/L (136-145); Total Bilirubin 0.3 mg/dL (0.15-1.2)
[2022-05-20] MEDS: iohexol 350 mg/mL 100 mL Btl IV (19:36)
[2022-05-20] MEDS: aspirin 81 mg Chew Tablet 324 MG PO (20:01)
[2022-05-20] MEDS: lactated ringers 1,000 ML 999 ML IV (20:01)
[2022-05-20 20:11] LABS: Add Urine Microscopic? NO; Charge for UA Resulting for Rev
[2022-05-20 20:16] LABS: Bilirubin Urine Neg (Negative); Blood Urine Neg (Negative); Glucose Urine UA Norm (Normal); HCG Qualitative Urine. Negative (Negative); Ketones Urine 1+ (Negative); Leukocyte Esterase Urine Negative (Negative); Nitrate Urine Negative (Negative); Protein Urine Neg (Negative); Specific Gravity, Urine 1.025 (1.005-1.030); Urine Appearance Clear (CLEAR); Urine Color Yellow (Yellow); Urobilinogen Urine Neg (Negative); pH Urine 5 (5-7)
[2022-05-20 20:37] LABS: SARS Covid-2 Antigen Negative (Negative)
--- NOTE | 2022-05-20 20:50 | ECG_ITS ---
[facility] Test Date: 2022-05-20 Pat Name: Karli Juarez Department: Room: 267 Gender: Female Anchorman: : 1980 Requested By: Anand Whitaker Order Number: [id number] Andres MD: Dilan Montero M.D. Measurements Intervals [place] Rate: 119 P: 51 AL: 206 QRS: 48 QRSD: 83 T: 46 QT: 306 QTc: 431 Interpretive Statements SINUS TACHYCARDIA POSSIBLE LEFT ATRIAL ENLARGEMENT [-0.1mV P-WAVE IN V1/V2] Compared to ECG 05/20/2022 18:29:29 No significant changes Electronically Signed On 05-22-2022 17:50:02 CDT by Dilan Montero M.D. [id number]
[2022-05-20] MEDS: fentaNYL 50 mcg/mL INJ 2mL IVP (21:07)
[2022-05-20] MEDS: lidocaine 2% viscous 15 ML, aluminum-mag hydrox-simethicon 30 ML, sucralfate oral liq 1 GM PO (21:07)
[2022-05-20] MEDS: ketorolac 30 mg/mL INJ 15 MG IVP (21:07)
[2022-05-20 21:17] VITALS: BP 124/74; PULSE 115; RESP 24; O2SAT 98
--- NOTE | 2022-05-20 21:18 | PC.NURSE ---
Pt. states that she was in a great amount of pain before I gave pain medication . Pt. is relaxed and says thank you for pain medication.
[2022-05-20 22:22] LABS: Erythrocyte Sedimentation Rate 17 mm/hr (0-15)
[2022-05-20] MEDS: cefTRIAXone 1,000 MG in sodium chloride 0.9% (plus) 50 ML 100 MG IV (22:26)
[2022-05-20 22:31] VITALS: BP 124/74; PULSE 120; RESP 28; O2SAT 98
[2022-05-20 22:45] LABS: Troponin 5 2HR Delta 0 ABS# (0-10)
[2022-05-20 22:56] VITALS: BMI 31.3
[2022-05-20 22:57] VITALS: BP 133/83; PULSE 122; RESP 20; TEMP 36.8; O2SAT 96
--- NOTE | 2022-05-20 23:19 | PM.HP ---
Providers/Chief Complaint Admitting Physician: Sebastian Geller MD Primary Care Provider: Kevin Rapp DO Chief Complaint: Chest Pain History of Present Illness Karli Juarez is a 41 year old female with a past medical history of vitiligo, frequent UTIs, currently on Augmentin, who presents to [facility] due to severe chest pain. Patient tells me that she has had recurrent UTIs, she has been on multiple rounds of antibiotics, she was on Macrobid however had recurrent UTIs and now is on Augmentin. Overall she has been doing well, no fevers, chills, no recent sickness, recent travel, no known exposure to COVID-19. She does have vitiligo, no other immunologic disease. No recent travel, no calf pain, no calf swelling, no hematemesis no hemoptysis. He tells me that today she was returning from [place] with her , when she started to develop severe substernal chest pain, that improved with sitting up and lying forward, it is almost a pressure-like pain, persisting for hours, so she presented here to the emergency room, here in the emergency room, her EKG is within normal limits, troponin within normal limits, she had received Toradol, morphine without any significant provement, fentanyl significantly reduce the pain, now with minimal 4 out of 10. She sitting up leaning forward, tells me that this position typically helps her pain, she also describes acid reflux that has been an issue recently. No abdominal pain, no nausea, vomiting. Review of Systems Const: Denies: fever(s), chills, fatigue or malaise Eyes: Denies: change in vision or blurry vision ENMT: Denies: nasal congestion Resp: Denies: dyspnea, productive cough, non-productive cough or wheezing GI: Denies: abdominal pain, nausea, vomiting, hematemesis, diarrhea, constipation, hematochezia or melena Musc: Denies: neck pain or back pain Neuro: Denies: headache(s), dizziness or vertigo Endo: Denies: polyuria or polydipsia Medications/Allergies Home Medications Medication Instructions Recorded Confirmed Last Taken Type biotin 5 mg tablet 5 mg PO DAILY 01/17/22 05/17/22 Unknown History cetirizine 10 mg tablet (Zyrtec) 10 mg PO DAILY PRN 01/17/22 05/17/22 Unknown History cholecalciferol (vitamin D3) 25 25 mcg PO DAILY 01/17/22 05/17/22 Unknown History mcg (1,000 unit) capsule clobetasol 0.05 % topical spray 1 applic topical BID #125 mL 01/17/22 05/17/22 Unknown Rx fluconazole 150 mg tablet 150 mg PO Q3D 3 days #3 tabs 01/17/22 05/17/22 Unknown Rx (Diflucan) magnesium 200 mg tablet 200 mg PO DAILY 01/17/22 05/17/22 Unknown History multivitamin (One-A-Day Essential) 1 tab PO DAILY 01/17/22 05/17/22 Unknown History phentermine 30 mg capsule 30 mg PO DAILY 01/17/22 05/17/22 Unknown History vitamin B complex (B 1 tab PO DAILY 01/17/22 05/17/22 Unknown History Complex-Vitamin B12) zinc 50 mg tablet 50 mg PO DAILY 01/17/22 05/17/22 Unknown History amoxicillin 875 mg-potassium 1 tab PO BID #60 tabs 05/17/22 05/17/22 Unknown Rx clavulanate 125 mg tablet Allergies Allergy/AdvReac Type Severity Reaction Status Date / Time No Known Allergies Allergy Verified 05/17/22 09:02 PFSH Acute PFSH: Medical History Frequent UTI Surgical History History of bunionectomy of right great toe History of hammertoe correction Family History Father Hyperlipidemia Social History Smoking and tobacco status: never smoked Alcohol intake: current Alcohol intake frequency: holidays/special occasions only Desire information about alcohol rehabilitation?: No Counseling given: No Marital status: service: No Current occupational status: employed History of recent travel: No Vitals/I&O/Wt Last Vital Signs Temp 98.2 F 05/20/22 22:57 Pulse 122 H 05/20/22 22:57 Resp 20 H 05/20/22 22:57 BP 133/83 05/20/22 22:57 Pulse Ox 96 05/20/22 22:57 O2 Del Method 05/20/22 22:57 05/20/22 05/20/22 05/21/22 14:59 22:59 06:59 Intake Total 1050 / 1050 Balance 1050 / 1050 Weight last 48 hrs Weight 90.718 kg Physical Exam Const: COMMON NORMALS: no acute distress and patient oriented x3 HENMT: COMMON NORMALS: normocephalic HEAD & SCALP: normocephalic Eye: COMMON NORMALS: Equal, round and reactive pupils present and EOMs intact bilaterally Neck/C-Spine: COMMON NORMALS: no JVD Resp: COMMON NORMALS: normal respiratory effort, No retractions, No use of accessory muscles and clear to auscultation bilaterally AUSCULTATION: clear to auscultation bilaterally Cardio: COMMON NORMALS: no JVD, regular rate, regular rhythm, S1 normal heart sound present and S2 normal heart sound present RATE: tachycardic RHYTHM: regular rhythm HEART SOUNDS: S1 normal heart sound present and S2 normal heart sound present GI: COMMON NORMALS: Normal to inspection, nondistended, normoactive bowel sounds present, Soft to palpation, non-tender, No hepatosplenomegaly present, no masses and no bruits PALPATION: Yes Soft to palpation and Yes No hepatosplenomegaly present Extremity: COMMON NORMALS: capillary refill normal, no clubbing, cyanosis or edema, no calf tenderness and no pedal edema Neuro: COMMON NORMALS: patient oriented x3, CN's II-XII intact bilaterally, moves all extremities and no focal motor deficits Psych: COMMON NORMALS: mental status grossly normal Data : 05/20/22 18:55 05/20/22 18:55 Micro: Microbiology 05/20/22 21:15 Blood Culture - Preliminary Blood SPECIMEN COLLECTED 05/20/22 21:10 Blood Culture - Preliminary Blood SPECIMEN COLLECTED A&P Assessment and plan (1) Chest pain: Chest pain -Clinically sounds a lot like pericarditis -CT of the chest does show groundglass opacities, could be a viral pneumonitis, social pericarditis -However no significant ST changes on EKG, CRP within normal limits, sed rate within normal limits -Toradol did not seem to help complaint, nonetheless we will do ibuprofen 600 3 times daily, GI protection as below, will do a cardiac echocardiogram -Certainly acid reflux could be another etiology, but received a GI cocktail, will place on Protonix, Carafate -Certainly costochondritis could be an etiology, ibuprofen as above, Dilaudid for severe pain -Does have transaminitis, elevated alk phos, right upper quadrant ultrasound -Other thoughts could be atypical pneumonia with pleurisy given CT scan findings of bibasilar groundglass airspace, continue Rocephin, continue azithromycin opacities, mild tree-in-bud appearance compatible with mild pneumonitis -Does have vitiligo, will do RACHEL, rheumatoid factor, tick panel On examination and on CT scan does have a heterogeneous enlarged thyroid gland, measuring 4.5 x 3.4 x 4.9 cm no discrete nodule -We will do TSH, free T3, free T4 -Needs to follow-up with ENT Status: Acute Attestations Medical Necessity Statement*: Patient requires hospitalization, outpatient with observation, for chest pain Coding Level of Care Code Acute Elastic Attacher Zigzag for [facility] F[facility] Diagnoses Chest pain R07.9
[2022-05-20 23:26] VITALS: RESP 18
[2022-05-20] MEDS: HYDROmorphone 1 mg/mL INJ 1 mL 0.5 MG IVP (23:26)
[2022-05-20] MEDS: CLONazepam 0.5 mg Tablet PO (23:29)
[2022-05-20] MEDS: pantoprazole DR 40 mg Tablet PO (23:29)
[2022-05-20] MEDS: sucralfate 1 gm Tablet PO (23:29)
[2022-05-20] MEDS: doxycycline 100 MG in sodium chloride 0.9% (plus) 100 ML IV (23:30)
[2022-05-20] MEDS: enoxaparin 40 mg/0.4 mL Syringe SUBCUT (23:43)
[2022-05-20 23:56] LABS: Alcohol Level < 10 mg/dL (0-10); Free T4 Free Thyroxine 2.19 ng/dL (0.82-1.77); T3 Free 6.6 PG/ML (2.0-4.4); Thyroid Stimulating Hormone 0.01 uIU/mL (0.27-4.20)
[2022-05-21] VITALS (8 sets, daily range): BP systolic 110–118; BP diastolic 73–79; PULSE 73–113; RESP 16–18; TEMP 36.2–37.1; O2SAT 94–99
[2022-05-21] LABS: HIV 1 & 2 Antibody Non-Reactive (Non-Reactiv); HIV 1 & 2 Antigen Non-Reactive (Non-Reactiv); Hepatitis A Antibody IgM Non-Reactive (Nonreactive); Hepatitis B Core IgM Non-Reactive (Nonreactive); Hepatitis B Surface Antigen Non-Reactive (Nonreactive); Hepatitis C Virus Antibody Non-Reactive (Nonreactive)
--- NOTE | 2022-05-21 01:18 | ECG_ITS ---
[facility] Test Date: 2022-05-21 Pat Name: Karli Juarez Department: Room: 267 Gender: Female Oxidation Engineer: : 1980 Requested By: Anand Whitaker Order Number: [id number] Andres MD: Dilan Montero M.D. Measurements Intervals [place] Rate: 113 P: 39 UT: 222 QRS: 14 QRSD: 85 T: 24 QT: 305 QTc: 420 Interpretive Statements SINUS TACHYCARDIA WITH FIRST DEGREE AV BLOCK POSSIBLE LEFT ATRIAL ENLARGEMENT [-0.1mV P-WAVE IN V1/V2] NONSPECIFIC ST ELEVATION [0.05+ mV ST ELEVATION] Compared to ECG 05/20/2022 22:20:47 First degree AV block now present ST (T wave) deviation now present Electronically Signed On 05-22-2022 17:49:13 CDT by Dilan Montero M.D. [id number]
[2022-05-21 01:33] LABS: Amphetamines Screen Urine Negative (Negative); Barbiturates Screen Urine Negative (Negative); Benzodiazepines Screen Urine Negative (Negative); Cocaine Screen Urine Negative (Negative); Opiate Screen Urine Positive (Negative); PCP Screen Urine Negative (Negative); THC Screen Urine Negative (Negative)
[2022-05-21 01:44] LABS: Basophils % 0.3 %; Eosinophils % 0.2 %; Hematocrit 37.9 % (37.0-47.0); Hemoglobin 11.4 g/dL (11.5-15.3); Lymphocytes # 1.3 10^3/uL (0.8-4.8); Mean Corpuscular HGB Conc 30.1 g/dL (30.0-36.0); Mean Corpuscular Hemoglobin 26.9 pg (28.0-34.0); Mean Corpuscular Volume 89.4 fl (81-99); Mean Platelet Volume 11.3 fL (7.4-10.4); Monocytes # 0.9 10^3/uL (0.2-0.9); Monocytes % 8.6 %; Neutrophils # 7.67 10^3/uL (1.8-7.7); Neutrophils % 77.6 %; Nucleated Red Blood Cells % 0 %; Platelet Count 239 10^3/cmm (130-400); Red Blood Count 4.24 10^6/uL (4.1-5.3); Red Cell Distribution Width 12.7 % (12.1-15.1); White Blood Count 9.9 10^3/uL (4.0-10.0)
[2022-05-21 02:11] LABS: Lactate (Lactic Acid level) 1.3 mmol/L (0.5-2.2)
[2022-05-21] MEDS: ibuprofen 600 mg Tablet PO ×2 (02:13→22:16)
[2022-05-21 02:14] LABS: Alanine Aminotransferase 44 U/L (0-33); Albumin Level 3.6 g/dL (3.5-5.2); Alkaline Phosphatase 140 IU/L (35-105); Aspartate Amino Transferase 44 U/L (0-32); Blood Urea Nitrogen 12 mg/dL (6-20); C Reactive Protein 25.1 mg/L (0.0-4.9); Calcium 9.6 mg/dL (8.5-10.5); Carbon Dioxide 18 mmol/L (22-29); Chloride 105 mmol/L (98-107); Creatine Phosphokinase 31 U/L (26-192); Glomerular Filtration Rate 242.8 mL/min (90-130); Glucose 97 mg/dL (65-115); Magnesium 1.8 mg/dL (1.7-2.3); Osmolality Calculated 284 mOsm/kg (285-295); Phosphorus 2.8 mg/dL (2.5-4.5); Sodium 137 mmol/L (136-145); Total Bilirubin 0.4 mg/dL (0.15-1.2); Total Protein 6.6 g/dL (6.6-8.7)
[2022-05-21 02:16] LABS: Anion Gap 17.5 (5-19); Potassium 3.5 mmol/L (3.5-5.1)
[2022-05-21 02:18] LABS: Procalcitonin 0.04 ng/mL (0-0.5)
[2022-05-21 02:19] LABS: Troponin 5 6HR Delta 0 ng/L (0-12)
[2022-05-21] MEDS: HYDROmorphone 1 mg/mL INJ 1 mL 0.5 MG IVP (08:04)
[2022-05-21] MEDS: pantoprazole DR 40 mg Tablet PO ×2 (08:05→17:12)
[2022-05-21] MEDS: ondansetron 2 mg/ML SDV 2 mL 4 MG IVP ×2 (08:05→14:28)
[2022-05-21] MEDS: sucralfate 1 gm Tablet PO ×3 (12:17→22:01)
--- NOTE | 2022-05-21 12:20 | P.PN_ITS ---
Subjective Subjective: Patient is complaining of pleuritic chest pain I did tell her about hyperthyroidism Will do radioactive uptake scan I would avoid adding methimazole for now because of her study tomorrow She is not showing any signs of thyroid storm or thyrotoxicosis, she does endorse weight loss, diarrhea, hot flashes for which I will give her methimazole and outpatient endocrinology follow-up Vitals/I&O/Wt Last Vital Signs Temp 98.0 F 05/21/22 08:00 Pulse 91 05/21/22 10:53 Resp 16 05/21/22 10:53 BP 116/78 05/21/22 08:00 Pulse Ox 97 05/21/22 10:53 O2 Del Method 05/21/22 10:53 05/20/22 05/21/22 05/21/22 22:59 06:59 14:59 Intake Total 1050 / 1050 100 / 1150 Balance 1050 / 1050 100 / 1150 Weight last 48 hrs Weight 90.718 kg Weight 90.718 kg Physical Exam Narrative: Patient is awake and alert Euvolemic No signs of edema No signs of Graves' disease No signs of thyroid storm Abdomen soft S1, S2 Lungs are clear to auscultation Awake and alert Pleasant and cooperative Data : 05/21/22 01:17 05/21/22 01:17 Micro: Microbiology 05/20/22 21:15 Blood Culture - Preliminary Blood SPECIMEN COLLECTED 05/20/22 21:10 Blood Culture - Preliminary Blood SPECIMEN COLLECTED A&P Assessment and plan (1) Chest pain: Status: Acute (2) Hyperthyroidism: Status: Acute (3) Pleuritic pain: Status: Acute (4) Pneumonia: Status: Acute Plan Pleuritic chest pain Most likely related to pneumonia D-dimer and ESR not remarkably high I will give her 1 dose of ketorolac today We will follow-up with echo For hypothyroidism we will check radioactive iodine uptake and then prescribe her medications and we will give her endocrinology follow-up at discharge Patient is not Abnormal transaminases Mcdaniel? Gallbladder ultrasound unremarkable CTA unremarkable for PE Pneumonitis, related to chemicals used for hair dye? Attestations Medical Necessity Statement*: Discharge tomorrow Time Spent in Patient Care: 30 Coding Level of Care Code Acute Medical Billing Service for Chg Fwd Diagnoses Chest pain R07.9 Hyperthyroidism E05.90 Pleuritic pain R07.81 Pneumonia J18.9
[2022-05-21] MEDS: ketorolac 30 mg/mL INJ 15 MG IVP (14:28)
[2022-05-21] MEDS: ipratropium-albuterol 3 mL Neb INHALATION (14:34)
[2022-05-21] MEDS: propranolol 20 mg Tablet PO (22:02)
[2022-05-21] MEDS: cefTRIAXone 1,000 MG in sodium chloride 0.9% (plus) 50 ML 100 MG IV (22:02)
[2022-05-21] MEDS: azithromycin 500 MG in sodium chloride 0.9% 250 ML 250 MG IV (22:42)
[2022-05-21] MEDS: enoxaparin 40 mg/0.4 mL Syringe SUBCUT (22:42)
--- NOTE | 2022-05-21 23:05 | USR_ITS ---
PROCEDURE INFORMATION: Exam: US Abdomen, Limited; gallbladder Exam date and time: 05/21/2022 12:09 AM Age: 41 years old Clinical indication: Abdominal pain; Additional info: Chest pain TECHNIQUE: Imaging protocol: Real time ultrasound of the abdomen with image documentation. Limited exam focused on the gallbladder. COMPARISON: CR XR KUB [id number] 05/17/2022 10:15 AM FINDINGS: Liver: The visualized liver shows normal contour and morphology with normal parenchymal echo texture. The liver size appears normal on sonography. Main portal vein appears unremarkable. Gallbladder: The gallbladder is not well distended with relative mild gallbladder wall prominence. There are no definite gallstones or gallbladder sludge reported. There is a prominent fold noted in the gallbladder. There is no pericholecystic fluid or wall thickening. Biliary ducts: The intrahepatic and extrahepatic bile ducts are not dilated with the common bile duct measuring 4.2 mm. The distal common bile duct is not well seen. Pancreas: Not well seen due to bowel gas. Intraperitoneal space: There is no right abdominal ascites. US/US gall bladder [id number] IMPRESSION: Unremarkable gallbladder ultrasound.
--- NOTE | 2022-05-21 23:05 | USCV_ITS ---
Karli Juarez Age: 41 Gender: F : 1980 Exam Date: 05/21/2022 00:25 Ordering Phys: Sebastian Geller MD Technologist: Manan Golden Exam Location: [facility] [place] Indication: Chest pain BP: 169 / 76 HR: 107 Rhythm: Sinus Technical Quality: Adequate MEASUREMENTS (Male / Female) Normal Values 2D ECHO LV Diastolic Diameter PLAX 3.9 cm 4.2 - 5.9 / 3.9 - 5.3 cm LV Systolic Diameter PLAX 2.6 cm IVS Diastolic Thickness 1.3 cm 0.6 - 1.0 / 0.6 - 0.9 cm IVS Systolic Thickness 1.1 cm LVPW Diastolic Thickness 1.7 cm 0.6 - 1.0 / 0.6 - 0.9 cm LVPW Systolic Thickness 1.7 cm LVOT Diameter 2.1 cm LV Ejection Fraction 2D Teich 61.2 % LV Ejection Fraction MOD 2C 39.4 % LV Ejection Fraction 2C AL 41.2 % LA Diameter 2.8 cm LA Width 4.1 cm LA Height 5.3 cm RA Width 4.9 cm RA Height 4.7 cm IVC Diameter 1.9 cm M-MODE Aortic Annulus Diameter 3.3 cm LA Ao Ratio MM 0.8 MV E Point Septal Separation 0.6 cm DOPPLER AV Peak Velocity 149.0 cm/s LVOT Peak Velocity 117.0 cm/s AV Area Cont Eq vti 3.1 cm squared AV Area Cont Eq pk 2.6 cm squared MV Area PHT 4.5 cm squared Mitral E to A Ratio 1.6 MV E' Velocity 61.6 cm/s Mitral E to MV E' Ratio 7.3 Mitral E to LV E' Lateral Ratio 17.6 Mitral E to LV E' Septal Ratio 4.7 TR Peak Velocity 277.3 cm/s TR Peak Gradient 30.7 mmHg TR Mean Velocity 221.9 cm/s TR Mean Gradient 20.5 mmHg TR Velocity Time Integral 74.9 cm Right Atrial Pressure 3.0 mmHg Pulmonary Artery Systolic Pressu 33.7 mmHg PV Peak Velocity 132.0 cm/s FINDINGS Left Ventricle Left ventricle is normal in size. LV systolic function is normal with EF of 55-60 %. No regional wall motion abnormalities are seen. Right Ventricle Normal in size and function Right Atrium Normal in size Left Atrium Normal in size Mitral Valve Structurally normal mitral valve. No significant stenosis or regurgitation is seen. Aortic Valve Grossly normal. No significant stenosis or regurgitation is seen Tricuspid Valve Mild tricuspid regurgitation. Pulmonary artery systolic pressure is normal Pulmonic Valve Not well-visualized Pericardium Normal Aorta Grossly normal IVC CONCLUSIONS Technically limited quality echocardiogram because of poor ultrasonic windows. LV systolic function is normal with EF 55 to 60%. Valvular structures are grossly normal Mild tricuspid regurgitation. No comparison studies are available. Dilan Montero MD (Electronically Signed) Final Date: 21 May 2022 13:30 S
[2022-05-22] VITALS: BP 111/75; PULSE 89; RESP 18; TEMP 36.7; O2SAT 99
[2022-05-22 04:00] VITALS: BP 112/72; PULSE 87; RESP 18; TEMP 36.8; O2SAT 95
[2022-05-22 05:20] LABS: Basophils % 0.4 %; Eosinophils # 0.1 10^3/uL (0.0-0.8); Eosinophils % 2.2 %; Hemoglobin 9.7 g/dL (11.5-15.3); Lymphocytes # 2.1 10^3/uL (0.8-4.8); Lymphocytes % 39.6 %; Mean Corpuscular HGB Conc 31.3 g/dL (30.0-36.0); Mean Corpuscular Volume 83.1 fl (81-99); Mean Platelet Volume 11.4 fL (7.4-10.4); Monocytes # 0.6 10^3/uL (0.2-0.9); Monocytes % 11.8 %; Neutrophils # 2.47 10^3/uL (1.8-7.7); Neutrophils % 45.6 %; Nucleated Red Blood Cells % 0 %; Platelet Count 220 10^3/cmm (130-400); Red Blood Count 3.73 10^6/uL (4.1-5.3); Red Cell Distribution Width 12.9 % (12.1-15.1); White Blood Count 5.4 10^3/uL (4.0-10.0)
[2022-05-22 05:45] LABS: Alanine Aminotransferase 76 U/L (0-33); Albumin Level 3.1 g/dL (3.5-5.2); Alkaline Phosphatase 152 IU/L (35-105); Anion Gap 12.8 (5-19); Aspartate Amino Transferase 77 U/L (0-32); Blood Urea Nitrogen 10 mg/dL (6-20); Calcium 9.4 mg/dL (8.5-10.5); Carbon Dioxide 23 mmol/L (22-29); Chloride 110 mmol/L (98-107); Globulin 2.6 g/dL (1.3-4.6); Glomerular Filtration Rate 242.8 mL/min (90-130); Glucose 95 mg/dL (65-115); Osmolality Calculated 293 mOsm/kg (285-295); Potassium 3.8 mmol/L (3.5-5.1); Sodium 142 mmol/L (136-145); Total Bilirubin 0.3 mg/dL (0.15-1.2); Total Protein 5.7 g/dL (6.6-8.7)
--- NOTE | 2022-05-22 07:15 | PC.NURSE ---
Bedside report received from Ligia FLOWER. Patient has been NPO since midnight for a nuclear medication exam. Patient is A&Ox3. Respirations even and non-labored on room air.
[2022-05-22 08:00] VITALS: BP 116/80; PULSE 73; RESP 16; TEMP 36.7; O2SAT 98
[2022-05-22] MEDS: sucralfate 1 gm Tablet PO (08:27)
[2022-05-22] MEDS: pantoprazole DR 40 mg Tablet PO (08:27)
[2022-05-22] MEDS: propranolol 20 mg Tablet PO (08:31)
[2022-05-22 09:32] VITALS: PULSE 95; RESP 16; O2SAT 100
--- NOTE | 2022-05-22 11:58 | PM.DCS ---
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 Her pain subsided with use of anti-inflammatory medications. Troponins were unremarkable. Echo did not show any pericardial effusion or wall motion abnormalities. Her autoimmune work-up has been requested at the time of admission. Chest x-ray and CT chest showed pneumonitis however no signs of PE. He was given pneumonia treatment in the hospital ceftriaxone and azithromycin. She remained afebrile. No leukocytosis. Kidney function was fine. No sign of kidney stones she has history of recurrent UTIs she has had tried multiple antibiotics in the past, she has used nitrofurantoin multiple times in last [address] Sanchez has recommended chronic suppressive therapy with Augmentin. Of note on this visit she was diagnosed with hyperthyroidism, diffusely enlarged thyroid, Dr. Milan recommended waiting for thyroid antibodies first before getting radioactive iodine uptake study. She will get Dr. Milan's follow-up. She will get propanolol and methimazole at the time of discharge. I have discussed the mechanism of drug and complications with the patient and her . She will repeat her T3-T4 TSH CBC and BMP after a week. Her tachycardia improved after I initiated propanolol. No signs of thyroid storm. She already has Augmentin 3-month supply I will add albuterol, methimazole, propanolol at the time of discharge. Cultures negative to date. Her pneumonitis source is unknown which could be related to long-term nitrofurantoin use, chemical pneumonitis because of her profession & Community-acquired pneumonia She also has abnormal liver enzymes gallbladder ultrasound was unremarkable, this could be related to Mcdaniel which will need annual follow-up with her PCP I will request hemoglobin A1c level Physical Exam Narrative: Patient is awake and alert Euvolemic Vitiligo No signs of edema No signs of Graves' disease No signs of thyroid storm Abdomen soft S1, S2 Lungs are clear to auscultation Awake and alert Pleasant and cooperative Discharge Data Studies Completed and Pending Completed Studies During Hospitalization Category Date Time Status CTA chest [CT angio chest PE protcl [id number]] Stat Cat Scan 05/20/22 19:22 Completed XR chest 1V portable 02100 Stat Exams 05/20/22 18:49 Completed CV. echo complete* [id number] Routine Ultrasound 05/21/22 23:05 Completed US gall bladder [id number] Stat Ultrasound 05/21/22 23:05 Completed Pending at discharge Category Date Time Status RACHEL Profile Rheumatology Stat Lab 05/20/22 23:05 Received Blood Culture Stat Lab 05/20/22 21:15 Results Complete Blood Count w/Auto AM LABS Lab 05/23/22 04:00 Ordered Comprehensive Metabolic Panel AM LABS Lab 05/23/22 04:00 Ordered Respiratory Viral Panel PCR Stat Lab 05/20/22 23:11 Ordered TPO [Thyroid Peroxidase Antobodies] Routine Lab 05/21/22 08:30 Received TSH Receptor Binding Antibody Routine Lab 05/21/22 08:30 Received Thyroglobulin AB Stat Lab 05/21/22 08:30 Received Tick Panel Stat Lab 05/20/22 23:15 Received Radiology Impressions Chest X-Ray 05/20/22 18:49 IMPRESSION: No acute findings. Chest CTA 05/20/22 19:22 IMPRESSION: 1. There is no pulmonary embolus. 2. Mild bibasilar ground-glass/airspace opacity is present, consistent with atelectasis, edema, or pneumonia. 3. There is mild dependent atelectasis in the upper lobes and mild tree-in-bud appearance compatible with mild pneumonitis or trace edema. 4. Heterogeneous enlarged thyroid gland without discrete nodule. No follow-up is necessary. Gallbladder Ultrasound 05/21/22 23:05 IMPRESSION: Unremarkable gallbladder ultrasound. Laboratory Results WBC 5.4 10^3/uL (4.0-10.0) 05/22/22 04:42 RBC 3.73 10^6/uL (4.1-5.3) L 05/22/22 04:42 Hgb 9.7 g/dL (11.5-15.3) L 05/22/22 04:42 Hct 31.0 % (37.0-47.0) L 05/22/22 04:42 MCV 83.1 fl (81-99) D 05/22/22 04:42 MCH 26.0 pg (28.0-34.0) L 05/22/22 04:42 MCHC 31.3 g/dL (30.0-36.0) 05/22/22 04:42 RDW 12.9 % (12.1-15.1) 05/22/22 04:42 Plt Count 220 10^3/cmm (130-400) 05/22/22 04:42 MPV 11.4 fL (7.4-10.4) H 05/22/22 04:42 Neut % (Auto) 45.6 % 05/22/22 04:42 Lymph % (Auto) 39.6 % 05/22/22 04:42 Sampson % (Auto) 11.8 % 05/22/22 04:42 Eos % (Auto) 2.2 % 05/22/22 04:42 Baso % (Auto) 0.4 % 05/22/22 04:42 Neut # (Auto) 2.47 10^3/uL (1.8-7.7) 05/22/22 04:42 Lymph # (Auto) 2.1 10^3/uL (0.8-4.8) 05/22/22 04:42 Sampson # (Auto) 0.6 10^3/uL (0.2-0.9) 05/22/22 04:42 Eos # (Auto) 0.1 10^3/uL (0.0-0.8) 05/22/22 04:42 Baso # (Auto) 0.0 10^3/uL (0.0-0.1) 05/22/22 04:42 Nucleated RBC % (auto) 0 % 05/22/22 04:42 Nucleated RBCs # 0.0 /100WBC 05/22/22 04:42 ESR 17 mm/hr (0-15) H 05/20/22 18:55 D-Dimer 0.75 ug/mIFEU (0-0.59) H 05/20/22 18:55 Sodium 142 mmol/L (136-145) 05/22/22 04:42 Potassium 3.8 mmol/L (3.5-5.1) 05/22/22 04:42 Chloride 110 mmol/L (98-107) H 05/22/22 04:42 Carbon Dioxide 23 mmol/L (22-29) 05/22/22 04:42 Anion Gap 12.8 (5-19) 05/22/22 04:42 BUN 10 mg/dL (6-20) 05/22/22 04:42 Creatinine 0.3 mg/dL (0.5-0.9) L 05/22/22 04:42 GFR Calculation 242.8 mL/min (90-130) H 05/22/22 04:42 Glucose 95 mg/dL (65-115) 05/22/22 04:42 Calculated Osmolality 293 mOsm/kg (285-295) 05/22/22 04:42 Lactate 1.3 mmol/L (0.5-2.2) 05/21/22 01:17 Calcium 9.4 mg/dL (8.5-10.5) 05/22/22 04:42 Phosphorus 2.8 mg/dL (2.5-4.5) 05/21/22 01:17 Magnesium 1.8 mg/dL (1.7-2.3) 05/21/22 01:17 Total Bilirubin 0.3 mg/dL (0.15-1.2) 05/22/22 04:42 AST 77 U/L (0-32) H 05/22/22 04:42 ALT 76 U/L (0-33) H 05/22/22 04:42 Alkaline Phosphatase 152 IU/L (35-105) H 05/22/22 04:42 Creatine Kinase 31 U/L (26-192) 05/21/22 01:17 Troponin T Baseline 6 ng/L (0-10) 05/20/22 18:55 Troponin T 120 Minute 6.00 ng/L (0-10) 05/20/22 21:15 Delta Troponin T 0 ABS# (0-10) 05/20/22 21:15 Troponin T Hi Sens 6Hr 6.00 ng/L (0-10) 05/21/22 01:17 Troponin T Hi Sens 6Hr Delta 0 ng/L (0-12) 05/21/22 01:17 C-Reactive Protein 25.1 mg/L (0.0-4.9) H 05/21/22 01:17 NT-Pro-B Natriuret Pep 80 pg/mL (0-125) 05/20/22 18:55 Total Protein 5.7 g/dL (6.6-8.7) L 05/22/22 04:42 Albumin 3.1 g/dL (3.5-5.2) L 05/22/22 04:42 Globulin 2.6 g/dL (1.3-4.6) 05/22/22 04:42 Lipase 26 U/L (13-60) 05/20/22 18:55 Procalcitonin 0.04 ng/mL (0-0.5) 05/21/22 01:17 TSH 0.01 uIU/mL (0.27-4.20) L 05/20/22 21:15 Free T4 2.19 ng/dL (0.82-1.77) H 05/20/22 21:15 Free T3 6.6 PG/ML (2.0-4.4) H 05/20/22 21:15 HCG, Qual Negative (Negative) 05/20/22 20:08 Ser , Semi-Qnt 0.50 mIU/mL 05/21/22 05:46 Urine Color Yellow (Yellow) 05/20/22 20:08 Urine Appearance Clear (CLEAR) 05/20/22 20:08 Urine pH 5 (5-7) 05/20/22 20:08 Ur Specific [place] 1.025 (1.005-1.030) 05/20/22 20:08 Urine Protein Neg (Negative) 05/20/22 20:08 Urine Glucose (UA) Norm (Normal) 05/20/22 20:08 Urine Ketones 1+ (Negative) H 05/20/22 20:08 Urine Blood Neg (Negative) 05/20/22 20:08 Urine Nitrate Negative (Negative) 05/20/22 20:08 Urine Bilirubin Neg (Negative) 05/20/22 20:08 Urine Urobilinogen Neg mg/dL (Negative) 05/20/22 20:08 Ur Leukocyte Esterase Negative (Negative) 05/20/22 20:08 Urine Opiates Screen Positive ng/mL (Negative) H 05/21/22 01:15 Ur Barbiturates Screen Negative ng/mL (Negative) 05/21/22 01:15 Ur Phencyclidine Scrn Negative ng/mL (Negative) 05/21/22 01:15 Ur Amphetamines Screen Negative ng/mL (Negative) 05/21/22 01:15 U Benzodiazepines Scrn Negative ng/mL (Negative) 05/21/22 01:15 Urine Cocaine Screen Negative ng/mL (Negative) 05/21/22 01:15 U Marijuana (THC) Screen Negative ng/mL (Negative) 05/21/22 01:15 Ethyl Alcohol < 10 mg/dL (0-10) 05/20/22 21:15 Rheumatoid Factor 11.0 IU/mL (0-14) 05/20/22 18:55 Hepatitis A IgM Ab Non-reactive (Nonreactive) 05/20/22 18:55 Hep Bs Antigen Non-reactive (Nonreactive) 05/20/22 18:55 Hep B Core IgM Ab Non-reactive (Nonreactive) 05/20/22 18:55 Hepatitis C Antibody Non-reactive (Nonreactive) 05/20/22 18:55 HIV 1&2 Ab & HIV 1 Ag Non-reactive (Non-Reactiv) 05/20/22 18:55 HIV 1&2 Antibody Non-reactive (Non-Reactiv) 05/20/22 18:55 SARS-CoV-2 Ag (Rapid) Negative (Negative) 05/20/22 20:08 Vitals Last Vital Signs Temp 98.0 F 05/22/22 08:00 Pulse 95 05/22/22 09:32 Resp 16 05/22/22 09:32 BP 116/80 05/22/22 08:00 Pulse Ox 100 05/22/22 09:32 O2 Del Method 05/22/22 09:32 Discharge Plan Discharge Patient Disposition: Home Condition: Stable Prescriptions: New methimazole 5 mg tablet 5 mg PO DAILY Qty: 30 0RF propranolol 10 mg tablet 10 mg PO BEDTIME Qty: 30 0RF albuterol sulfate 90 mcg/actuation HFA aerosol inhaler 2 inh inhalation Q8H PRN (Reason: shortness of breath or wheezing) Qty: 8.5 0RF Continued cetirizine [Zyrtec] 10 mg tablet 10 mg PO DAILY PRN (Reason: Allergy Symptoms) amoxicillin-pot clavulanate 875-125 mg tablet 1 tab PO BID Qty: 60 3RF Discharge Orders: Discharge Order (Routine); Ordered 05/22/22 Ordered By: Ирина Horan Other Ambulatory Orders: Complete Blood Count w/Auto (Routine) Timeframe: 1 Week Location: Determined by Patient Ordered By: Ирина Horan Comprehensive Metabolic Panel (Routine) Timeframe: 1 Week Facility: [facility] - Location: Lab - Main Lab Ordered By: Ирина Horan T3 Free (Routine) Timeframe: 1 Week Facility: [facility] - Location: Lab - Main Lab Ordered By: Ирина Horan Free T4 Free Thyroxine (Routine) Timeframe: 1 Week Facility: [facility] - Location: Lab - Main Lab Ordered By: Ирина Horan Thyroid Stimulating Hormone (Routine) Timeframe: 1 Week Facility: [facility] - Location: Lab - Main Lab Ordered By: Ирина Horan Referrals: Kevin Rapp DO [Primary Care Provider] - 05/30/22 2:00 pm Aimee Milan MD [Physician] - 06/07/22 1:00 pm Discharge Diet: Cardiac Discharge Activity: Increase activity as tolerated Patient Instructions: Propranolol (By mouth), Albuterol (By breathing), Methimazole (By mouth), Chest Pain (DC), Pleurisy (GEN), Chest Pain Stoplight, Opioid Safety Activity Restrictions/Additional Instructions: Dr. Milan recommended to follow-up with thyroid antibodies first depending on the antibodies we will make further decision regarding radioactive iodine uptake study She also recommended starting you on methimazole(antithyroid medication) I will start low-dose 5 mg daily, you can also take propanolol 10 mg before bedtime, in case of excessive sedation or hindrance to do your job you can discontinue propanolol and just continue methimazole Mostly antibody test take a week to come back so I am giving you referral for Dr. Milan after 2 weeks so we have all the report before you see a specialist In case of any question please do not hesitate to call the hospital and ask questions. We can tell flaring machine operator to contact you with Dr Horan Discharge Attestations Time Spent in Discharge Care*: less than 30 min Quality Metrics Clinical Quality Measures [ No reported AMI, CVA or VTE this stay] Coding Level of Care Code Acute Chg FW DC note Diagnoses Chest pain R07.9 Hyperthyroidism E05.90 Pleuritic pain R07.81 Pneumonia J18.9
[2022-05-22 12:00] VITALS: BP 121/83; PULSE 74; RESP 16; TEMP 36.8; O2SAT 98
[2022-05-22 12:12] LABS: THYROID PEROXIDASE ANTIBODIES >900 IU/mL (<9)
[2022-05-22 12:12] LABS: Thyroglobulin AB 15 IU/mL (< or = 1); Thyroid Peroxidase Antobodies >900 IU/mL (<9)
[2022-05-22 13:16] LABS: COMPLEMENT, TOTAL (CH50) 46 U/mL (31-60)
--- NOTE | 2022-05-22 13:26 | PC.NURSE ---
DC instructions given to pt and family member at bedside. Pt is alert and oriented with normal respirations. Pt and family had no questions and verbalized understanding of DC instructions. IV removed. Catheter intact upon removal.
[2022-05-22 13:28] VITALS: BP 121/83; PULSE 74; RESP 16; TEMP 36.8; O2SAT 98
[2022-05-22 14:37] LABS: Lyme AB Screen <0.90 index
[2022-05-22 14:41] LABS: Estmated Average Glucose 91; Hemoglobin A1C 4.8 % (4.0-6.0)
[2022-05-22 15:27] LABS: COMPLEMENT COMPONENT C3C 98 mg/dL (83-193); COMPLEMENT COMPONENT C4C 21 mg/dL (15-57)
[2022-05-22 16:06] LABS: CENTROMERE B ANTIBODY <1.0 NEG AI (<1.0 NEG); JO-1 ANTIBODY <1.0 NEG AI (<1.0 NEG); RNP ANTIBODY <1.0 NEG AI (<1.0 NEG); SCL-70 ANTIBODY <1.0 NEG AI (<1.0 NEG); SJOGREN'S ANTIBODY (SS-A) <1.0 NEG AI (<1.0 NEG); SM ANTIBODY <1.0 NEG AI (<1.0 NEG); SS-B <1.0 NEG AI (<1.0 NEG)
[2022-05-22 16:28] LABS: ANA SCREEN, IFA NEGATIVE (NEGATIVE)
[2022-05-25 14:42] LABS: DNA AB (DS) CRITHIDIA,IFA NEGATIVE (NEGATIVE)
[2022-05-25 21:18] LABS: E. Chaffeensis AB IGG <1:64; E. Chaffeensis AB IGM <1:20
[2022-05-26 15:26] LABS: TSH Receptor Binding Antibody 6.49 IU/L (< OR = 2.00)
[2022-06-20 17:48] LABS: RMSF IGG NOT DETECTED; RMSF IGM NOT DETECTED
== END 2022-05-22 13:53 | disposition home or self-care (01) ==
LOC: ER 22:04 → MEDSURG 22:15
PROVIDERS: Admitting Provider Family Medicine; Emergency Provider Emergency Medicine; PCP Family Medicine; Visit Provider Internal Medicine
DX: J18.9 Pneumonia, unspecified organism (principal); E05.90 Thyrotoxicosis, unspecified without thyrotoxic crisis or storm; R07.81 Pleurodynia; D64.9 Anemia, unspecified
CPT/HCPCS: 36415; 71045; 71275; 76705; 80053; 80074; 80306; 80307; 81003; 81025; 82550; 83036; 83516; 83605; 83690; 83735; 83880; 84100; 84145; 84439; 84443; 84481; 84484; 84702; 85025; 85378; 85651; 86140; 86160; 86162; 86235; 86255; 86376; 86431; 86618; 86666; 86757; 86800; 87040; 87426; 87806; 93005; 93306; 94640; 96365; 96366; 96367; 96372; 96375; 96376; 99285; G0378; J0456; J0696; J1170; J1650; J1885; J2270; J2405; J3010; J3490; J7050; Q9967

== ENCOUNTER → 2022-06-02 08:16 | Outpatient (BNVA) | payer OTHER, SELFPAY | PROVIDERS: PCP Family Medicine; Visit Provider Family Medicine | DX: R79.89 Other specified abnormal findings of blood chemistry (principal); E05.90 Thyrotoxicosis, unspecified without thyrotoxic crisis or storm; D64.9 Anemia, unspecified | CPT/HCPCS: 80053; 84439; 84443; 84481; 85025 ==

== ENCOUNTER → 2022-06-07 14:55 | Outpatient (BNVA) | payer OTHER, SELFPAY | PROVIDERS: PCP Family Medicine; Visit Provider Internal Medicine | DX: N91.2 Amenorrhea, unspecified (principal); E05.90 Thyrotoxicosis, unspecified without thyrotoxic crisis or storm | CPT/HCPCS: 84702 ==

== ENCOUNTER 2022-06-27 08:28 | Outpatient (CLI) | payer OTHER, SELFPAY ==
[2022-06-27 09:57] LABS: Free T4 Free Thyroxine 1.18 ng/dL (0.82-1.77); Thyroid Stimulating Hormone 0.01 uIU/mL (0.27-4.20)
[2022-06-28 07:48] LABS: T3 Total 117 ng/dL (76-181)
== END 2022-06-27 08:29 | disposition home or self-care (01) ==
LOC: LAB 08:31
PROVIDERS: PCP Family Medicine; Visit Provider Internal Medicine
DX: E06.3 Autoimmune thyroiditis (principal)
CPT/HCPCS: 36415; 84439; 84443; 84480

== ENCOUNTER → 2022-08-09 17:27 | Outpatient (BNVA) | payer OTHER, SELFPAY | PROVIDERS: PCP Family Medicine; Visit Provider Emergency Medicine | DX: N39.0 Urinary tract infection, site not specified (principal); B34.9 Viral infection, unspecified | CPT/HCPCS: 81000 ==

== ENCOUNTER → 2022-09-14 14:49 | Outpatient (BNVA) | payer OTHER, SELFPAY | PROVIDERS: PCP Family Medicine; Visit Provider Urology | DX: N39.9 Disorder of urinary system, unspecified (principal); N30.20 Other chronic cystitis without hematuria | CPT/HCPCS: 81003 ==

== ENCOUNTER → 2022-09-30 11:50 | Outpatient (BNVA) | payer OTHER, SELFPAY | PROVIDERS: PCP Family Medicine; Visit Provider Family Medicine | DX: R50.9 Fever, unspecified (principal); J06.9 Acute upper respiratory infection, unspecified; H66.91 Otitis media, unspecified, right ear | CPT/HCPCS: 87400 ==

== ENCOUNTER 2022-10-09 12:12 | Outpatient (CLI) | payer OTHER, SELFPAY ==
[2022-10-09 13:13] LABS: Free T4 Free Thyroxine 0.69 ng/dL (0.82-1.77); Thyroid Stimulating Hormone 4.25 uIU/mL (0.27-4.20)
[2022-10-11 10:04] LABS: T3 Total 114 ng/dL (76-181)
== END 2022-10-09 12:13 | disposition home or self-care (01) ==
PROVIDERS: PCP Family Medicine; Visit Provider Internal Medicine
DX: E05.90 Thyrotoxicosis, unspecified without thyrotoxic crisis or storm (principal)
CPT/HCPCS: 36415; 84439; 84443; 84480

== ENCOUNTER 2022-10-19 09:27 | Outpatient (CLI) | payer OTHER, SELFPAY ==
[2022-10-19 10:32] LABS: Free T4 Free Thyroxine 1.03 ng/dL (0.82-1.77)
== END 2022-10-19 09:28 | disposition home or self-care (01) ==
LOC: LAB 09:29
PROVIDERS: PCP Family Medicine; Visit Provider Internal Medicine
DX: E05.90 Thyrotoxicosis, unspecified without thyrotoxic crisis or storm (principal)
CPT/HCPCS: 36415; 84439

== ENCOUNTER 2022-11-08 09:35 | Outpatient (CLI) | payer OTHER, SELFPAY ==
--- NOTE | 2022-11-08 09:30 | MM_ITS ---
WS: [email or web address] DIAGNOSTIC LEFT DIGITAL TOMOSYNTHESIS MAMMOGRAPHY WITH CAD. LEFT breast ultrasound, limited HISTORY: Left sided breast Lump, Tender COMPARISON: 02/23/2022, 10/07/2020 and 11/10/2016 Technique: CC, MLO and ML views. Spot compression LEFT MLO and cc. Breast composition: The breasts are heterogeneously dense, which may obscure small masses. Palpable m arkers are placed at several areas over the inferior and superior LEFT breast. No interval change in appearance of the breast or soft tissues since the prior studies. There is a benign appearing lymph n ode upper outer quadrant of the LEFT breast which has been present on multiple prior studies. LEFT breast ultrasound, limited. Ultrasound at 1:00 as directed by the patient reveals a benign lymph node which has been present on m ultiple prior examinations measuring 7 x 9 x 6 mm. Ultrasound also directed at 5:00 and 6:00 in the p alpable regions with no underlying abnormality. MM/[place] [id number] IMPRESSION: BI-RADS: 2-Benign FOLLOW UP: 1 Year Follow-up
== END 2022-11-08 09:36 | disposition home or self-care (01) ==
PROVIDERS: PCP Family Medicine; Visit Provider Family Medicine
DX: N63.20 Unspecified lump in the left breast, unspecified quadrant (principal)
CPT/HCPCS: 76642; 77061; G0279

== ENCOUNTER 2022-11-21 08:11 | Outpatient (CLI) | payer OTHER, SELFPAY ==
[2022-11-21 10:21] LABS: Thyroid Stimulating Hormone 1.52 uIU/mL (0.27-4.20)
[2022-11-22 22:19] LABS: T3 Total 72 ng/dL (76-181)
== END 2022-11-21 08:12 | disposition home or self-care (01) ==
PROVIDERS: PCP Family Medicine; Visit Provider Internal Medicine
DX: E05.00 Thyrotoxicosis with diffuse goiter without thyrotoxic crisis or storm (principal); E06.3 Autoimmune thyroiditis
CPT/HCPCS: 36415; 84439; 84443; 84480

== ENCOUNTER 2022-12-11 09:36 | Outpatient (CLI) | payer OTHER, SELFPAY ==
[2022-12-11 11:03] LABS: Free T4 Free Thyroxine 1.07 ng/dL (0.82-1.77); Thyroid Stimulating Hormone 1.29 uIU/mL (0.27-4.20)
== END 2022-12-11 09:37 | disposition home or self-care (01) ==
LOC: LAB 09:40
PROVIDERS: PCP Family Medicine; Visit Provider Internal Medicine
DX: E05.90 Thyrotoxicosis, unspecified without thyrotoxic crisis or storm (principal)
CPT/HCPCS: 36415; 84439; 84443

== ENCOUNTER → 2023-01-17 11:31 | Outpatient (BNVA) | payer OTHER, SELFPAY | PROVIDERS: PCP Family Medicine; Visit Provider Family Medicine | DX: E05.90 Thyrotoxicosis, unspecified without thyrotoxic crisis or storm (principal); E55.9 Vitamin D deficiency, unspecified; R53.83 Other fatigue; B37.31 Acute candidiasis of vulva and vagina | CPT/HCPCS: 80053; 82306; 82607; 82746; 83735; 85025 ==

== ENCOUNTER → 2023-03-27 13:14 | Outpatient (BNVA) | payer OTHER, SELFPAY | PROVIDERS: PCP Family Medicine; Visit Provider Internal Medicine | DX: E06.3 Autoimmune thyroiditis (principal); E05.90 Thyrotoxicosis, unspecified without thyrotoxic crisis or storm; E55.9 Vitamin D deficiency, unspecified; J06.9 Acute upper respiratory infection, unspecified | CPT/HCPCS: 82306; 84439; 84443; 84480 ==

== ENCOUNTER 2023-04-27 09:41 | Outpatient (CLI) | payer OTHER, SELFPAY ==
--- NOTE | 2023-04-27 09:50 | MM_ITS ---
WS: [email or web address] VIEWS: MLO and CC views both breasts. 3D digital tomosynthesis is also included in this exam. Comparison made with prior exam of 11/10/2016, 09/02/2019, 10/07/2020, 02/23/2022. 11/08/2022 Findings: There was no sign of mass, architectural distortion or suspicious calcification in either breast. Th e breasts are extremely dense which lowers the sensitivity of mammography for this patient. MM/[place] [id number] Impression: BI-RADS: 2-Benign finding. FOLLOW-UP: 1 Year Follow-up This mammogram was also analyzed by the Computer Aided Detection System R2 Imag e [employer].
== END 2023-04-27 09:42 | disposition home or self-care (01) ==
LOC: RAD 09:46 → MOBLMAM 09:49
PROVIDERS: PCP Family Medicine; Visit Provider Family Medicine
DX: Z12.31 Encounter for screening mammogram for malignant neoplasm of breast (principal)
CPT/HCPCS: 77063; 77067

== ENCOUNTER → 2023-10-05 14:05 | Outpatient (BNVA) | payer OTHER, SELFPAY | PROVIDERS: PCP Family Medicine; Visit Provider Nurse Practitioner | DX: R19.7 Diarrhea, unspecified (principal); J00 Acute nasopharyngitis [common cold]; H66.002 Acute suppurative otitis media without spontaneous rupture of ear drum, left ear | CPT/HCPCS: 82306; 84439; 84443; 87400 ==

== ENCOUNTER → 2023-10-23 10:21 | Outpatient (BNVA) | payer OTHER, SELFPAY | PROVIDERS: PCP Family Medicine; Visit Provider Family Medicine | DX: R53.82 Chronic fatigue, unspecified (principal); Z68.34 Body mass index [BMI] 34.0-34.9, adult; Z71.3 Dietary counseling and surveillance; Z60.0 Problems of adjustment to life-cycle transitions; Z79.899 Other long term (current) drug therapy | CPT/HCPCS: 80053; 80061; 82672; 83002; 84144; 84443; 85025 ==

== ENCOUNTER 2023-11-07 11:54 | Outpatient (CLI) | payer OTHER, SELFPAY ==
[2023-11-07 12:55] LABS: Estmated Average Glucose 103; Hemoglobin A1C 5.2 % (4.0-6.0)
[2023-11-07 13:02] LABS: Alanine Aminotransferase 19 U/L (0-33); Albumin Level 4.3 g/dL (3.5-5.2); Alkaline Phosphatase 108 U/L (35-105); Anion Gap 14.8 (5-19); Aspartate Amino Transferase 21 U/L (0-32); Blood Urea Nitrogen 13 mg/dL (6-20); Calcium 10.4 mg/dL (8.5-10.5); Carbon Dioxide 24 mmol/L (22-29); Chloride 101 mmol/L (98-107); Globulin 3.3 g/dL (1.3-4.6); Glucose 82 mg/dL (65-115); Osmolality Calculated 281 mOsm/kg (285-295); Potassium 3.8 mmol/L (3.5-5.1); Sodium 136 mmol/L (136-145); Total Bilirubin 0.5 mg/dL (0.15-1.2); Total Protein 7.6 g/dL (6.6-8.7)
[2023-11-08 21:56] LABS: C-Peptide 1.17 ng/mL (0.80-3.85)
[2023-11-23 02:10] LABS: GAD 65 IA-2 Antibody <5.4 U/mL (<5.4); GAD Insulin Autoantibody <0.4 U/mL (<0.4); Glutamic Acid Decarboxylase 65 <5 IU/mL (<5)
== END 2023-11-07 11:55 | disposition home or self-care (01) ==
LOC: LAB 11:55
PROVIDERS: PCP Family Medicine; Visit Provider Family Medicine
DX: R73.9 Hyperglycemia, unspecified (principal)
CPT/HCPCS: 36415; 80053; 83036; 83519; 83525; 84681; 86337; 86341

== ENCOUNTER → 2024-03-19 10:20 | Outpatient (BNVA) | payer OTHER, SELFPAY | PROVIDERS: PCP Family Medicine; Visit Provider Obstetrics & Gynecology | DX: R10.2 Pelvic and perineal pain (principal); N83.202 Unspecified ovarian cyst, left side | CPT/HCPCS: 76830 ==

== ENCOUNTER → 2024-04-09 11:25 | Outpatient (BNVA) | payer OTHER, SELFPAY | PROVIDERS: PCP Family Medicine; Visit Provider Nurse Practitioner Women's Health | DX: Z12.4 Encounter for screening for malignant neoplasm of cervix (principal); Z01.419 Encounter for gynecological examination (general) (routine) without abnormal findings | CPT/HCPCS: 87624 ==

== ENCOUNTER → 2024-04-17 11:22 | Outpatient (BNVA) | payer OTHER, SELFPAY | PROVIDERS: PCP Family Medicine; Visit Provider Nurse Practitioner Family | DX: J02.9 Acute pharyngitis, unspecified (principal); J06.9 Acute upper respiratory infection, unspecified | CPT/HCPCS: 87880 ==

== ENCOUNTER 2024-06-18 09:12 | Outpatient (CLI) | payer OTHER, SELFPAY ==
--- NOTE | 2024-06-18 09:19 | MM_ITS ---
WS: [email or web address] SCREENING DIGITAL BREAST TOMOSYNTHESIS MAMMOGRAM WITH CAD HISTORY: Z12.39 - Encounter for other screening for malignant neop... COMPARISON: 04/27/2023, 11/08/2022, 02/23/2022 and 10/07/2020 Bilateral CC and MLO with tomosynthesis and synthetic mammography submitted. Computer aided detection analyzed. Breast composition: The breasts are heterogeneously dense, which may obscure small masses. Focal asym metries are more prominent within the LEFT breast as compared to multiple prior exams. These are best noted on the LMLO projection. These are slightly spiculated but not as apparent on the CC projection . Favor these will probably resolve with additional imaging. Negative RIGHT breast. MM/[place] [id number] IMPRESSION: BI-RADS: 0 - Incomplete: Need additional imaging evaluation FOLLOW UP: Need Additional Imaging LEFT breast: Spot compression views (CC and MLO). True ML. Ultrasound to follow if abnormality persists.
== END 2024-06-18 09:13 | disposition home or self-care (01) ==
LOC: RAD 09:12
PROVIDERS: PCP Family Medicine; Visit Provider Family Medicine
DX: Z12.31 Encounter for screening mammogram for malignant neoplasm of breast (principal)
CPT/HCPCS: 77063; 77067

== ENCOUNTER 2024-07-28 11:14 | Outpatient (CLI) | payer OTHER, SELFPAY ==
--- NOTE | 2024-07-28 11:30 | MM_ITS ---
WS: [email or web address] ADDITIONAL VIEWS LEFT MAMMOGRAM with tomosynthesis. LEFT BREAST ULTRASOUND HISTORY: R92.8 - Other abnormal and inconclusive findings on screening mammogram. COMPARISON: 06/18/2024, 04/27/2023, 02/23/2022 LEFT MAMMOGRAM: Spot compression views and true ML with tomosynthesis and sympathetic mammography. Focal asymmetry in the central LEFT breast just posterior to the nipple in the CC projection resolves with additional imaging. Persistent but improved asymmetries in the superior LEFT breast towards the upper outer quadrant. LEFT BREAST ULTRASOUND 2-D and color Doppler imaging submitted. No corresponding mass, shadowing or asymmetry in the LEFT breast from 12-2 o'clock. The asymmetry see n by mammography are normal fibroglandular breast tissue. MM/MM diag LT tomosynthesis [id number] IMPRESSION: BI-RADS: 2- Benign FOLLOW UP: 1 Year Follow-up
--- NOTE | 2024-07-28 12:00 | US_ITS ---
WS: [email or web address] ADDITIONAL VIEWS LEFT MAMMOGRAM with tomosynthesis. LEFT BREAST ULTRASOUND HISTORY: R92.8 - Other abnormal and inconclusive findings on screening mammogram. COMPARISON: 06/18/2024, 04/27/2023, 02/23/2022 LEFT MAMMOGRAM: Spot compression views and true ML with tomosynthesis and sympathetic mammography. Focal asymmetry in the central LEFT breast just posterior to the nipple in the CC projection resolves with additional imaging. Persistent but improved asymmetries in the superior LEFT breast towards the upper outer quadrant. LEFT BREAST ULTRASOUND 2-D and color Doppler imaging submitted. No corresponding mass, shadowing or asymmetry in the LEFT breast from 12-2 o'clock. The asymmetry see n by mammography are normal fibroglandular breast tissue. US/US breast LT limited* [id number] IMPRESSION: BI-RADS: 2- Benign FOLLOW UP: 1 Year Follow-up
== END 2024-07-28 11:15 | disposition home or self-care (01) ==
LOC: RAD 11:15
PROVIDERS: PCP Family Medicine; Visit Provider Nurse Practitioner Women's Health
DX: R92.8 Other abnormal and inconclusive findings on diagnostic imaging of breast (principal)
CPT/HCPCS: 76642; 77061; G0279

== ENCOUNTER → 2024-09-24 14:58 | Outpatient (BNVA) | payer OTHER, SELFPAY | PROVIDERS: PCP Family Medicine; Visit Provider Family Medicine | DX: R73.09 Other abnormal glucose (principal); Z68.34 Body mass index [BMI] 34.0-34.9, adult; R79.89 Other specified abnormal findings of blood chemistry | CPT/HCPCS: 80053; 84439; 84443; 85025 ==

== ENCOUNTER → 2025-01-13 13:20 | Outpatient (BNVA) | payer OTHER, SELFPAY | PROVIDERS: PCP Family Medicine; Visit Provider Emergency Medicine | DX: N12 Tubulo-interstitial nephritis, not specified as acute or chronic (principal); R39.9 Unspecified symptoms and signs involving the genitourinary system | CPT/HCPCS: 81000; 87086 ==

== ENCOUNTER 2025-01-27 09:20 | Outpatient (CLI) | payer OTHER, SELFPAY ==
[2025-01-27 10:54] LABS: Estmated Average Glucose 91; Hemoglobin A1C 4.8 % (4.0-6.0)
[2025-01-27 13:04] LABS: Alanine Aminotransferase 19 U/L (0-33); Albumin Level 4.2 g/dL (3.5-5.2); Alkaline Phosphatase 112 U/L (35-105); Anion Gap 13.1 (5-19); Aspartate Amino Transferase 21 U/L (0-32); Blood Urea Nitrogen 12 mg/dL (6-20); Calcium 10.4 mg/dL (8.5-10.5); Carbon Dioxide 24 mmol/L (22-29); Chloride 107 mmol/L (98-107); Chol HDL Ratio 2.66 mg/dL (0.0-4.40); Cholesterol 173 mg/dL (0-200); Free T4 Free Thyroxine 1.26 ng/dL (0.82-1.77); Globulin 3.2 g/dL (1.3-4.6); Glomerular Filtration Rate 132.8 mL/min (90-130); Glucose 70 mg/dL (65-115); HDL Cholesterol 65 mg/dL (60-100); LDL Cholesterol Calculated 98 mg/dL (50-129); LDL HDL Ratio 1.51 RATIO (0.00-3.22); Osmolality Calculated 288 mOsm/kg (285-295); Potassium 4.1 mmol/L (3.5-5.1); Sodium 140 mmol/L (136-145); Total Bilirubin 0.3 mg/dL (0.15-1.2); Total Protein 7.4 g/dL (6.6-8.7); Triglycerides 51 mg/dL (0-150)
[2025-01-28 05:13] LABS: T3 Total 86 ng/dL (76-181)
[2025-01-28 09:33] LABS: C-Peptide 1.93 ng/mL (0.80-3.85)
== END 2025-01-27 09:21 | disposition home or self-care (01) ==
PROVIDERS: PCP Family Medicine; Visit Provider Internal Medicine
DX: E06.3 Autoimmune thyroiditis (principal); T78.40XA Allergy, unspecified, initial encounter; E05.00 Thyrotoxicosis with diffuse goiter without thyrotoxic crisis or storm; R79.89 Other specified abnormal findings of blood chemistry; E55.9 Vitamin D deficiency, unspecified; D64.9 Anemia, unspecified; X58.XXXA Exposure to other specified factors, initial encounter; R73.09 Other abnormal glucose
CPT/HCPCS: 80053; 80061; 83036; 84439; 84443; 84480; 84681; 86337; 86341

== ENCOUNTER 2025-01-30 15:09 | Outpatient (CLI) | payer OTHER, SELFPAY ==
--- NOTE | 2025-01-30 15:15 | US_ITS ---
WS: [email or web address] THYROID ULTRASOUND HISTORY: Nodule. COMPARISON: CT 05/20/2022 Right lobe: 1.4 cm x 1.8 cm x 4.9 cm (w x ap x l). Volume: 5.7 cm3. Very slightly enlarged heterogeneous gland. There are a few small colloid nodules present. No focal mass. No echogenic foci. Left lobe: 3.3 cm x 3.3 cm x 5.4 cm (w x ap x l). Volume: 28.2 cm3. Enlarged nodular gland. There is a very large hyperechoic nodule with a few cystic areas in the central gland measuring 3.0 x 2.4 x 4.6 cm. Increased vascularity. Isthmus: 0.5 cm. US/US thyroid [id number] IMPRESSION: 1. TI-RADS 4; LEFT thyroid nodule. Consider surgical removal due to its large size versus ultrasound-guided fine-needle aspiration.
== END 2025-01-30 15:10 | disposition home or self-care (01) ==
PROVIDERS: PCP Family Medicine; Visit Provider Internal Medicine
DX: R73.09 Other abnormal glucose (principal); E06.3 Autoimmune thyroiditis; E05.00 Thyrotoxicosis with diffuse goiter without thyrotoxic crisis or storm; R79.89 Other specified abnormal findings of blood chemistry; E55.9 Vitamin D deficiency, unspecified; E04.2 Nontoxic multinodular goiter
CPT/HCPCS: 76536

== ENCOUNTER → 2025-03-07 14:19 | Outpatient (BNVA) | payer OTHER, SELFPAY | PROVIDERS: PCP Family Medicine; Visit Provider Emergency Medicine | DX: R39.9 Unspecified symptoms and signs involving the genitourinary system (principal); N12 Tubulo-interstitial nephritis, not specified as acute or chronic | CPT/HCPCS: 81000; 87077; 87086; 87184 ==

== ENCOUNTER → 2025-03-19 12:08 | Outpatient (BNVA) | payer OTHER, SELFPAY | PROVIDERS: PCP Family Medicine; Visit Provider Nurse Practitioner Women's Health | DX: E05.00 Thyrotoxicosis with diffuse goiter without thyrotoxic crisis or storm (principal); R53.82 Chronic fatigue, unspecified; N91.2 Amenorrhea, unspecified; N91.5 Oligomenorrhea, unspecified; R53.83 Other fatigue | CPT/HCPCS: 82306; 82607; 82670; 82728; 82746; 83001; 83525; 83540; 84146; 84439; 84443; 84481; 84702 ==

== ENCOUNTER 2025-07-17 09:47 | Outpatient (CLI) | payer OTHER, SELFPAY | END 2025-07-17 09:48 | disposition home or self-care (01) | LOC: SPT 09:48 | PROVIDERS: PCP Family Medicine; Visit Provider Podiatrist Foot & Ankle Surgery | DX: Z46.89 Encounter for fitting and adjustment of other specified devices (principal); Q66.71 Congenital pes cavus, right foot; Q66.72 Congenital pes cavus, left foot; Q66.229 Congenital metatarsus adductus, unspecified foot; Q82.8 Other specified congenital malformations of skin; L84 Corns and callosities | CPT/HCPCS: L3030 ==

== ENCOUNTER → 2025-07-25 14:29 | Outpatient (BNVA) | payer OTHER, SELFPAY | PROVIDERS: PCP Family Medicine; Visit Provider Emergency Medicine | DX: R39.89 Other symptoms and signs involving the genitourinary system (principal); N12 Tubulo-interstitial nephritis, not specified as acute or chronic | CPT/HCPCS: 81000; 87086 ==

== ENCOUNTER 2025-07-30 08:57 | Outpatient (CLI) | payer OTHER, SELFPAY ==
--- NOTE | 2025-07-30 09:03 | MM_ITS ---
WS: [email or web address] BILATERAL SCREENING DIGITAL TOMOSYNTHESIS MAMMOGRAM WITH CAD HISTORY: SCREENING COMPARISON: 07/28/2024, 06/18/2024, 11/08/2022, 10/07/2020 Bilateral CC and MLO views with tomosynthesis and synthetic mammography submitted. Computer aided detection analyzed. Breast composition: The breasts are extremely dense, which lowers the sensitivity of mammography. No suspicious masses, microcalcifications or architectural distortion. Asymmetries in the anterior aspect of each breast are stable. No suspicious mass. Lymph node in the superior LEFT breast. MM/MM scr tomosynthesis [id number] IMPRESSION: BI-RADS: 2 - Benign FOLLOW UP: 1 Year Follow-up
== END 2025-07-30 08:58 | disposition home or self-care (01) ==
PROVIDERS: PCP Family Medicine; Visit Provider Family Medicine
DX: Z12.31 Encounter for screening mammogram for malignant neoplasm of breast (principal); R92.343 Mammographic extreme density, bilateral breasts; N64.89 Other specified disorders of breast; N63.20 Unspecified lump in the left breast, unspecified quadrant
CPT/HCPCS: 77063; 77067

== ENCOUNTER → 2025-09-02 12:22 | Outpatient (BNVA) | payer OTHER, SELFPAY | PROVIDERS: PCP Family Medicine; Visit Provider Nurse Practitioner Women's Health | DX: R82.90 Unspecified abnormal findings in urine (principal); R30.0 Dysuria | CPT/HCPCS: 84315; 87086 ==

== ENCOUNTER → 2025-09-07 09:20 | Outpatient (BNVA) | payer OTHER, SELFPAY | PROVIDERS: PCP Family Medicine; Visit Provider Nurse Practitioner Women's Health | DX: Z01.89 Encounter for other specified special examinations (principal) | CPT/HCPCS: 87077 ==